=== PATIENT | male | born 1950 | race Caucasian/White ===

== ENCOUNTER 2019-05-14 05:50 | Inpatient (IN) ==
--- NOTE | 2019-04-28 14:58 | PAT Medication Instructions ---
Medication Instructions Date of Service April 28, 2019 Home Medications Cbd Oil 1 dose PO BID aspirin [Aspir-81] 81 mg PO QAM atorvastatin 80 mg PO QAM clopidogrel 75 mg PO QAM gabapentin 300 mg PO TID naproxen 1,000 mg PO QAM nitroglycerin [Nitrostat] 0.4 mg SUBLINGUAL UD PRN pantoprazole 40 mg PO QAM sertraline 50 mg PO QAM Continue as directed nitroglycerin [Nitrostat] 0.4 mg SUBLINGUAL UD PRN (if needed) ASK your surgeon for instructions naproxen 1,000 mg PO QAM ASK your prescriber and surgeon aspirin [Aspir-81] 81 mg PO QAM clopidogrel 75 mg PO QAM DO NOT take the morning of surgery Cbd Oil 1 dose PO BID Take morning of surgery With a small sip of water, OTHERWISE NOTHING TO EAT OR DRINK AFTER MIDNIGHT: atorvastatin 80 mg PO QAM gabapentin 300 mg PO TID pantoprazole 40 mg PO QAM sertraline 50 mg PO QAM Take evening before surgery Cbd Oil 1 dose PO BID gabapentin 300 mg PO TID Other Notes If you have any questions please call us at [phone] or [phone] or [phone] or [phone]
--- NOTE | 2019-04-29 13:05 | Anesthesiology Consultation ---
Date of Service April 29, 2019 Assessment & Plan (1) Encounter for pre-operative examination: - Awaiting review of preop testing (labs, CXR). - Cardiology office visit: 02/11/19: "Doing fairly well from a cardiac standpoint." Previous cardiac testing reviewed. Continued on same regimen. F/U 6 months recommended. 04/2017 ECHO in chart. Per cardiology office visit note, ECHO was done 06/2018- will attempt to obtain official report. - ASA/plavix instructions: per surgeon/cardiology History Surgery Operation Date: 05/14/19 07:45 Proposed Procedures p L3-S1 Decompression and Fusion, Spinal Cord Monitoring - Tamir Jenkins, Height/Weight Height: 6 ft Weight: 103.4 kg Allergies Allergy/AdvReac Type Severity Reaction Status Date / Time Penicillins Allergy Unknown Rash Verified 04/17/19 11:54 Medications Home Medications Medication Instructions Recorded Confirmed Last Taken Cbd Oil 1 dose PO BID 04/17/19 04/17/19 Unknown aspirin [Aspir-81] 81 mg PO QAM 04/17/19 04/17/19 Unknown atorvastatin 80 mg PO QAM 04/17/19 04/17/19 Unknown clopidogrel 75 mg PO QAM 04/17/19 04/17/19 Unknown gabapentin 300 mg PO TID 04/17/19 04/17/19 Unknown naproxen 1,000 mg PO QAM 04/17/19 04/17/19 Unknown nitroglycerin [Nitrostat] 0.4 mg SUBLINGUAL UD PRN 04/17/19 04/17/19 Unknown pantoprazole 40 mg PO QAM 04/17/19 04/17/19 Unknown sertraline 50 mg PO QAM 04/17/19 04/17/19 Unknown Past Medical History Medical History Acid reflux Anxiety CAD (coronary artery disease) PCI to LAD via HEADLEY graft (2015), CABG x2 (2008), patent grafts per 2018 cath History of cardiac arrhythmia per cardiology office visit note 01/2019, hx SVT likely a. flutter single episode detected on remote event monitor- cardio/EP monitoring History of ischemic cardiomyopathy improved EF (50%) per 06/2018 ECHO per cardiology office visit note History of kidney stones History of neck problems arthritis Hyperlipidemia Pinched nerve lumbar Exercise / Class Metabolic Activity III < 4 Walking/Shop/Light housework (one flight of stairs (no chest pain, rare SOB)) Past Surgical History Surgical History History of cardiac cath 2016 (stent), 2018 (no stents/patent grafts) History of cholecystectomy History of colonoscopy History of heart bypass surgery CABG x2 (2009) History of shoulder surgery RX3 Past Anesthesia History No Hx of Anesthesia Complications (except PONV (remote episodes)) and No Family Hx of Anesthesia Complications History of PONV History of PONV (remote hx (per patient, resolved when pre-treatment given)) and Hx of Motion Sickness Social History Smoking Status: Never smoker Do You Dip or Chew Tobacco: No Hx Alcohol Use: Yes Alcohol type: beer alcohol intake frequency: 3 or more drinks per day (2-3 BEERS/NIGHT) Hx Substance Use: No substance use type: other Substance Use Type Other:: CBD OIL Review of Systems Patient denies chest pain, shortness of breath, cough, wheezing, palpitations. Physical Exam Vital Signs VITALS BP 121/78 P 55 TEMP 97.6 SP02 93%RA RESP 18 PHYSICAL Mildly decreased cervical extension 2/2 cervicalgia/arthritis Full TMJ range of motion. TMD 3.5 finger breaths Mallampati Score 2 Dentition: intact Lungs: clear throughout to auscultation Cardiac: regular rate and rhythm, no murmurs noted Spine: normal Carotid arteries: negative bruit Extremities: no edema Testing Laboratory Results 04/29/19 13:25 04/29/19 13:25 PT 10.4 Seconds (9.0-12.0) 04/29/19 13:25 INR 1.0 (0.9-1.1) 04/29/19 13:25 APTT 23.0 Seconds (21.0-31.0) 04/29/19 13:25 Urine Color Yellow 04/29/19 Unknown Urine Appearance Clear (Clear) 04/29/19 Unknown Urine pH 6.5 (4.5-7.5) 04/29/19 Unknown Ur Specific [place] 1.010 (1.000-1.030) 04/29/19 Unknown Urine Protein Negative (Negative) 04/29/19 Unknown Urine Glucose (UA) Negative (Negative) 04/29/19 Unknown Urine Ketones Negative (Negative) 04/29/19 Unknown Urine Nitrite Negative (Negative) 04/29/19 Unknown Ur Leukocyte Esterase Negative (Negative) 04/29/19 Unknown Blood Type A Positive 04/29/19 13:25 Antibody Screen NEGATIVE 04/29/19 13:25 Electrocardiogram Date: 02/11/19 SR at 87bpm. Possible septal infarct. + PVC's. Done at cardiology office visit 02/11/19- reviewed at visit, continued on same regimen with recommendation to f/u 6 months Chest X-Ray Date: 04/29/19 Median sternotomy wires and mediastinal surgical clips. Coronary artery calcification or stents may be present. Cardiac silhouette top normal in size. Lungs and pleural spaces clear. Degenerative changes of the thoracic spine. Cholecystectomy clips noted. IMPRESSION: No acute cardiopulmonary disease. Stress Test Date: 05/10/17 Type: nuclear Large moderate reversible anterior and septal defect suggestive of ischemia. No evidence of myocardial infarction. LVEF 55%. Subsequent cardiac cath 05/23/2017. Cardiac Catheterization Date: 05/23/17 Left main 99% occluded. LAD 100% occluded proximally. CX 100% occluded ostially. RCA proximal 90% calcified stenosis. Then 99% occluded in the transition from proximal to mid segment. After the second RV marginal the RCA is 100% occluded. SVG to OM graft widely patent. Left to right collateralization to the distal RCA distribution. HEADLEY to LAD remains intact. [place] vessel has stent after anastomosis with is patent. Several septal branches and small collaterals to the lateral wall. Conclusion: Severe [place] vessel coronary artery disease. 2 out of 2 grafts are widely patent. No target for PCI. LVEF 45%. Mild to moderate MR. Medical therapy recommended.
--- NOTE | 2019-04-29 13:52 | XRay Report ---
XR chest Pre-admission PA/Lat CLINICAL HISTORY: 68 years-old Male presenting with preoperative assessment, asymptomatic. TECHNIQUE: PA and lateral views of the chest were obtained. COMPARISON: None. FINDINGS: Median sternotomy wires and mediastinal surgical clips. Coronary artery calcification or stents may b e present. Cardiac silhouette top normal in size. Lungs and pleural spaces clear. Degenerative change s of the thoracic spine. Cholecystectomy clips noted. IMPRESSION: 1. No acute cardiopulmonary disease. ACT 112: Negative or not required by law. Electronically signed by: Juvenal Morse M.D. 04/29/2019 1:50 PM
[2019-04-29 14:17] LABS: Basophils # (auto) 0.03 K/uL (0-0.2); Basophils % (auto) 0.4 %; Eosinophils # (auto) 0.28 K/uL (0-0.5); Hematocrit (blood only) 45.6 % (42-52); Hemoglobin 14.9 g/dL (14.0-18.0); Immature Granulocytes # (auto) 0.02 K/uL (0.00-0.02); Immature Granulocytes % (auto) 0.3 %; Lymphocytes # (auto) 1.73 K/uL (1.2-3.4); Lymphocytes % (auto) 24.5 %; Mean Corpuscular Hemoglobin 29.9 pg (25-34); Mean Corpuscular Hgb Conc 32.7 g/dL (32-36); Mean Corpuscular Volume 91.4 fL (80-100); Mean Platelet Volume 10.5 fL (7.4-10.4); Monocytes # (auto) 0.84 K/uL (0.11-0.59); Monocytes % (auto) 11.9 %; Neutrophils # (auto) 4.17 K/uL (1.4-6.5); Neutrophils % (auto) 58.9 %; Platelet Count 213 K/uL (130-400); RDW Coefficient of Variation 13.3 % (11.5-14.5); Red Blood Count 4.99 M/uL (4.7-6.1); White Blood Count 7.07 K/uL (4.8-10.8)
[2019-04-29 14:20] LABS: BUN Creatinine Ratio 19.7 (10-20); Calcium 9.2 mg/dl (8.5-10.1); Creatinine Clr Calc Pharmacy 100.4 ml/min; Est GFR (African American) 102.8; Est GFR (Non-African American) 88.7; Potassium 4.3 mmol/L (3.5-5.1)
[2019-04-29 14:21] LABS: Partial Thromboplastin Ratio 0.8; Prothrombin Time 10.4 Seconds (9.0-12.0)
[2019-04-29 14:57] LABS: Appearance Urine Clear (Clear); Bilirubin Urine Negative (Negative); Blood Urine Negative (Negative); Color Urine Yellow; Glucose Urine UA Negative (Negative); Ketones Urine Negative (Negative); Leukocyte Esterase Urine Negative (Negative); Nitrite Urine Negative (Negative); Protein Urine Negative (Negative); Urobilinogen Urine Negative (Negative); pH Urine 6.5 (4.5-7.5)
[2019-05-14] MEDS ORDERED: CLINDAMYCIN 600 MG/54 ML BAG IV SCH (06:00)
[2019-05-14] MEDS ORDERED: GABAPENTIN 300 MG CAP PO SCH (06:00)
[2019-05-14] MEDS ORDERED: LR 15ML/HR IV SCH (06:00)
[2019-05-14] MEDS ORDERED: fentaNYL citrate 100 MCG/2 ML VIAL ONE ×2 (06:38→09:12)
[2019-05-14] MEDS ORDERED: ONDANSETRON INJ 2 MG/ML 2 ML VIAL ONE ×2 (06:38→08:37)
[2019-05-14] MEDS ORDERED: DEXAMETHASONE SOD INJ 4 MG/ML VIAL ONE (06:38)
[2019-05-14] MEDS ORDERED: MIDAZOLAM HCL 1 MG/ML 2ML VIAL ONE (06:38)
[2019-05-14] MEDS ORDERED: LIDOCAINE HCL 2% 2 ML VIAL/AMP(20MG/ML) INFIL ONE (06:38)
[2019-05-14] MEDS ORDERED: NEOSTIGMINE METHYLSULFATE 1 MG/ML 10ML VIAL ONE (06:38)
[2019-05-14] MEDS ORDERED: ROCURONIUM BROMIDE 10 MG/ML 5 ML VIAL ONE ×3 (06:38→09:11)
[2019-05-14] MEDS ORDERED: GLYCOPYRROLATE 0.2 MG/ML VIAL ONE (06:38)
[2019-05-14] MEDS ORDERED: PROPOFOL IV EMULSION 10 MG/ML 20 ML VIAL IV ONE ×3 (06:38→09:10)
[2019-05-14] MEDS ORDERED: ATROPINE SULFATE 0.1 MG/ML 10ML SYR IV PRN (06:58)
[2019-05-14] MEDS ORDERED: PROMETHAZINE HCL 12.5 MG in SODIUM CHLORIDE 0.9% 50 ML IV PRN ×2 (06:58→12:32)
[2019-05-14] MEDS ORDERED: METOCLOPRAMIDE HCL INJ 5 MG/ML 2 ML VIAL IV PRN ×2 (06:58→12:32)
[2019-05-14] MEDS ORDERED: ePHEDrine sulfate 50 MG/ML AMP IV PRN (06:58)
[2019-05-14] MEDS ORDERED: ONDANSETRON INJ 2 MG/ML 2 ML VIAL IV PRN ×2 (06:58→12:32)
[2019-05-14] MEDS ORDERED: BUPIVACAINE/EPINEPHRINE 0.5% MPF 1:200,000 10 ML VIAL ONE (07:00)
[2019-05-14] MEDS ORDERED: BACITRACIN INJ 50,000 UNIT VIAL ONE (07:00)
--- NOTE | 2019-05-14 07:34 | History & Physical Bridge Note ---
Date of Service May 14, 2019 History & Physical Bridge Note I have examined the patient, reviewed the History & Physical and in the interval since the performance of the History & Physical I have noted the following changes of clinical significance: no changes noted
--- NOTE | 2019-05-14 07:35 | History & Physical Report ---
Date of Service May 14, 2019 Assessment & Plan (1) Neurogenic claudication due to lumbar spinal stenosis: L3-S1 decompression fusion Present on Admission?: Yes History of Present Illness Chief Complaint: Back and leg pain Primary Care Provider: Kiet Mckeon This is a 68-year-old male who presents with chronic persistent back and leg pain after failing extensive course of nonoperative care is here for surgical intervention. Allergies Allergy/AdvReac Type Severity Reaction Status Date / Time Penicillins Allergy Intermediate Rash Verified 05/14/19 06:05 Home Medications Home Medications Medication Instructions Recorded Confirmed Type Cbd Oil 1 dose PO BID 04/17/19 05/14/19 History aspirin [Aspir-81] 81 mg PO QAM 04/17/19 05/14/19 History atorvastatin 80 mg PO QAM 04/17/19 05/14/19 History clopidogrel 75 mg PO QAM 04/17/19 05/14/19 History gabapentin 300 mg PO TID 04/17/19 05/14/19 History naproxen 1,000 mg PO QAM 04/17/19 05/14/19 History nitroglycerin [Nitrostat] 0.4 mg SUBLINGUAL UD PRN 04/17/19 05/14/19 History pantoprazole 40 mg PO QAM 04/17/19 05/14/19 History sertraline 50 mg PO QAM 04/17/19 05/14/19 History Past Med/Surg History Medical History Acid reflux Anxiety CAD (coronary artery disease) PCI to LAD via HEADLEY graft (2015), CABG x2 (2008), patent grafts per 2018 cath History of cardiac arrhythmia per cardiology office visit note 01/2019, hx SVT likely a. flutter single episode detected on remote event monitor- cardio/EP monitoring History of ischemic cardiomyopathy improved EF (50%) per 06/2018 ECHO per cardiology office visit note History of kidney stones History of neck problems arthritis Hyperlipidemia Pinched nerve lumbar Surgical History History of cardiac cath 2016 (stent), 2018 (no stents/patent grafts) History of cholecystectomy History of colonoscopy History of heart bypass surgery CABG x2 (2008) History of shoulder surgery RX3 Social History Preferred Language: Sinhala Communication Ability: Effective Communication Ability Comment: HARD OF HEARING ON PHONE, PT REQUEST JASON TO DO PHONE INTERVIEW Battery Installer Required: No Beliefs That Will Affect Care: None Current Living Situation: Spouse Other Information That Helps Us Care for You: No Feels Safe at Home: Yes Smoking Status: Never smoker Do You Dip or Chew Tobacco: No ; Hx Alcohol Use: Yes Alcohol type: beer Hx Substance Use: No Physical Exam Physical Exam: Patient is alert and oriented neurologically intact. Results & Data Vital Signs (Past 12 Hours) Vital Signs Temp Pulse Resp BP Pulse Ox 05/14/19 06:15 36.8 C 60 18 156/94 H 96
[2019-05-14] MEDS ORDERED: PHENYLEPHRINE 100MCG/ML 5ML SYR ONE (08:16)
[2019-05-14] MEDS ORDERED: ePHEDrine sulfate 50 MG/ML SYR ONE (08:16)
[2019-05-14] MEDS ORDERED: PROMETHAZINE HCL INJ 25 MG/ML 1 ML VIAL ONE (08:38)
[2019-05-14] MEDS ORDERED: FLOSEAL HEMOSTATIC MATRIX 10ML TOP ONE (09:01)
--- NOTE | 2019-05-14 10:25 | Operative Report ---
Post Operative Report Pre & Post Diagnosis Operation Date: 05/14/19 07:45 Pre-Op Diagnosis: LUMBAR SPINAL STENOSIS w NEUROGENIC CLAUDICATION Spondylolisthesis L5-S1 Post-Op Diagnosis: Same I identified the patient and participated in the time-out.: Yes Procedure Operation Date: 05/14/19 07:45 Actual Procedures #1 lumbar decompression bilateral medial facetectomies foraminotomies L3-4, L4- 5, L5-S1. #2 posterior spinal fusion L3-4, L4-5, L5-S1. #3 placement posterior segmental instrumentation from L3-S1. #4 interbody fusion L4-5 and L5-S1. #5 placed a peek cage 12 x 26 mm L4-5 and 11 x 26 mm at L5-S1. #6 placement locally harvested morselized autograft in the posterior lateral gutters. #7 placement infuse collagen sponge, master graft in the posterior gutters and ostial amp interbody space. Surgeon Tamir Jenkins, DO Accounts Payable Bookkeeper Tosin Winter Estimated Blood Loss 300 Findings See Below The patient is 6 feet tall weighing over 103 kg with a BMI in excess of 31. The patient's body habitus did create marked increased technical difficulty adding at least 25% increased to the operative time and requiring her deepest retractors and longest instruments in order to perform his procedure. Specimens None Indications This is a 68-year-old male who presents above-mentioned diagnosis after failing extensive course of nonoperative care elected undergo the above-mentioned procedure. Description of Procedure Patient was met with case discussed all questions were addressed and informed consent obtained. Patient was then taken to the operative suite underwent intubation placed in a prone position the Edwardo table on top Yousuf frame. All bony prominences well-padded inspected to ensure no external pressure placed upon. This point lumbar spine was prepped and draped in a sterile fashion. Sharp dissection with the assistance of Bovie cautery performed down to and exposing the lamina transverse processes bilaterally. From caudal cephalad fashion complete laminectomy of L5 L4 and L3 is performed including bilateral medial facetectomies foraminotomies addressing severe spinal stenosis. Pedicle screws were then placed in L3-L4 and L5 and S1 bilaterally with assistance of fluoroscopy the purposes radha placed. By way of a transforaminal approach on the right a complete discectomy of L5-S1 is performed endplates curetted to subcortical bleeding bone and a 11 x 26 mm peek cage filled with osteo-bone graft tapped in position. Then proceeded L4-[address] of a transforaminal approach on the right complete discectomy was performed endplates curetted to subcortical bleeding bone and a 12 x 26 mm peek cage filled with osteo-bone graft tapped in position. The rods were then locked in final position bilaterally. The transverse processes of L3-L4-L5 and sacral ala burred to subcortical bleeding bone. Infuse collagen sponge master graft local autograft was placed in the posterior lateral gutters. 15 round SAM drain inserted. The incision was then closed with 1 Vicryl in the fascia 2-0 Vicryl subcutaneously and 4 Monocryl for final skin closure. Steri-Strip sterile dressings placed. Patient will continue to PACU in stable condition. Please note spinal cord monitoring was utilized that the procedure no changes noted. Lastly Tosin Winter was present at the entire procedure involved the patient positioning complex portions of the surgery and final skin closure. I attest to the content of the Intraoperative Record and any orders documented therein. Any exceptions are noted below.
[2019-05-14] MEDS: fentaNYL citrate 100 MCG/2 ML VIAL IV PRN ×2 (10:51→10:57)
[2019-05-14] MEDS: MoRPHine SULFATE 10 MG/ML CARP/VIAL IV PRN ×6 (11:03→11:28)
[2019-05-14] MEDS: HYDROmorphone INJ 2 MG/ML SYR/VIAL IV PRN ×5 (11:34→11:50)
--- NOTE | 2019-05-14 11:59 | Fluoroscopy Report ---
FL lumbar spine 2-3V CLINICAL HISTORY: 68 years-old Male presenting with L3-S1 DECOMPRESSION/FUSION. TECHNIQUE: 2 fluoroscopic image(s) recorded as part of an intraoperative procedure. COMPARISON: None. FINDINGS/IMPRESSION: Postsurgical changes of posterior bilateral transpedicular screw and radha fixation of L3-S1 with inter body spacers at L4-5 and L5-S1 and laminectomy defects at L4 and L5. Normal anatomic alignment. Please see surgical report for further details. Fluoroscopy dosage (mGy): 20.45. Fluoroscopy time: 22.0 seconds. Number or time of high level fluoroscopy (HLF), digital spot, or digital subtraction images: 0. ACT 112: Negative or not required by law. Electronically signed by: Juvenal Morse M.D. 05/14/2019 11:58 AM
[2019-05-14] MEDS ORDERED: SOD PHOSPHATE/SOD BIPHOSPHATE ENEMA 132 ML BTL PR PRN (12:32)
[2019-05-14] MEDS ORDERED: DO NOT ADMINISTER FLU VACCINE PRN (12:32)
[2019-05-14] MEDS ORDERED: HYDROmorphone INJ 0.5 MG/0.5 ML SYR IV PRN (12:32)
[2019-05-14] MEDS ORDERED: LORazepam 0.5 MG/1 ML VIAL IV PRN (12:32)
[2019-05-14] MEDS ORDERED: FAMOTIDINE 20 MG TAB PO PRN (12:32)
[2019-05-14] MEDS ORDERED: NALOXONE HCL 0.4 MG/1 ML VIAL/CARP IV PRN (12:32)
[2019-05-14] MEDS ORDERED: LORazepam 0.5 MG TAB PO PRN (12:32)
[2019-05-14] MEDS ORDERED: DO NOT ADMINISTER PNEUMOCOCCAL VACCINE PRN (12:32)
[2019-05-14] MEDS ORDERED: MAGNESIUM HYDROXIDE SUSP 30 ML UDC PO PRN (12:32)
[2019-05-14] MEDS ORDERED: ACETAMINOPHEN 500 MG TAB PO PRN (12:32)
[2019-05-14] MEDS ORDERED: bisacodyL 10 MG SUPP PR PRN (12:32)
[2019-05-14] MEDS ORDERED: TRAMADOL HCL 50 MG TABLET PO PRN (12:32)
[2019-05-14] MEDS ORDERED: ACETAMINOPHEN 1,000 MG/100 ML VIAL IV PRN (12:32)
[2019-05-14] MEDS ORDERED: NITROGLYCERIN SL 0.4 MG/TAB TAB SL PRN (12:32)
[2019-05-14] MEDS ORDERED: ALUMINUM/MAGNESIUM SUSP 30 ML UDC PO PRN (12:32)
--- NOTE | 2019-05-14 13:17 | Consultation ---
Date of Consultation May 14, 2019 Assessment & Plan (1) Neurogenic claudication due to lumbar spinal stenosis: Status post lumbar decompression and fusion L3-S1 by Dr. Jenkins, POD #0 EBL 300 mL; SAM drain 180 mL Patient tolerated procedure well Pain/wound management per Ortho Activity and therapy as directed by Ortho DVT prophylaxis per Ortho Encourage incentive spirometry and wean O2 as able Follow H&H -preop 2/4 14.9 & 45.6 (2) CAD (coronary artery disease): Patient denies chest pain or shortness of breath History of CABG x2 in 2008; PCI to [place] LAD 2016 On ASA, Plavix, statin as outpatient Not on RIGO inhibitor or beta-ai (3) Hyperlipidemia: Continue atorvastatin (4) Anxiety: Mood stable, continue Zoloft (5) Acid reflux: Asymptomatic, continue PPI (6) DVT prophylaxis: SCD/teds Disposition: Per primary Follow-up: PCP Dr. Mckeon upon discharge Patient was seen and examined in collaboration with Dr. Flethcer, please see addendum Thank you for this consultation. We will follow the patient with you during their hospital stay. You can reach a member of the [facility] 16/10 via pager @ [phone]. Supervising Physician Co-Signing Physician Notes I have seen and examined the patient and have discussed the case with the provider above. I agree with the assessment and plan as stated with the following exceptions. 68 yo M with recent lumbar surgery. Because of his height and weight, OR time was extended by 25% with 300mL est blood loss. Doing well post-operatively reporting min pain that is controlled. He does not appear overtly dehydrated and is comfortable. Denied any chest pain, palpitations, dyspnea or other issue. Physical exam reveals a regular tachycardia with no murmurs, gallops or rubs. He has no peripheral edema and has a normal respiratory effort. Lungs were clear to auscultation bilaterally. SAM drain was in place. Wound was not examined due to patient's supine positioning and post- operative discomfort. Mentating clearly. HR noted to be around 110-115 on the monitor. Denied anxiety. Was noted to have received ephedrine and dexamethasone intraoperatively earlier in the day. By the end of the day, tac hycardia persisted but did not rise. PE considered but thought to be more likely the post operative setting related to pain, anxiety and anesthesia/medications administered. EKG ordered and revealed sinus rhythm. Cont to monitor in hospital during acute post-operative recovery. DO Chance History of Present Illness Requesting Physician: Dr. Jenkins Reason for Consultation: Postop medical management Attending Physician: Tamir Jenkins DO History of Present Illness This is a 68-year-old male who has significant PMH of CAD with history of CABG x2, history of ischemic cardiomyopathy, hyperlipidemia, GERD, anxiety who presents to [facility] for elective lumbar procedure. Patient has experienced chronic low back pain with radiculopathy secondary to lumbar spinal stenosis with neurogenic claudication. He failed outpatient conservative treatment and underwent elective L3-S1 decompression fusion today by Dr. Jenkins. He tolerated the procedure well and is currently just, "tired and dry mouth." and [id number] are at bedside. He denies any postoperative nausea, vomiting, dizziness, lightheadedness, syncope, chest pain, shortness breath, palpitations, abdominal pain, numbness and tingling to lower extremities or lower extremity pain. He is currently experiencing lumbar incisional discomfort approximately 5 out of 10. Of significance he does have a past medical history of [place] vessel CAD. He underwent two-vessel bypass 11/21/2008 along with PCI to LAD via the HEADLEY graft on 07/07/2015. He is stable from a cardiac standpoint and does not experience any exertional or at rest angina or shortness of breath. He does have a prior history of ischemic cardiomyopathy but most recent echo June 2018 revealed EF 50%, LA moderately dilated, mild MR and AR. He is currently managed with dual antiplatelet therapy per cardiology. He also has significant history of hyperlipidemia controlled on atorvastatin and anxiety controlled with sertraline. He offers no other acute concerns or complaints at this time. Allergies Allergy/AdvReac Type Severity Reaction Status Date / Time Penicillins Allergy Intermediate Rash Verified 05/14/19 06:05 tramadol Allergy dizziness Verified 05/14/19 13:12 and itching Home Medications Home Medications Medication Instructions Recorded Confirmed Type Cbd Oil 1 dose PO BID 04/17/19 05/14/19 History aspirin [Aspir-81] 81 mg PO QAM 04/17/19 05/14/19 History atorvastatin 80 mg PO QAM 04/17/19 05/14/19 History clopidogrel 75 mg PO QAM 04/17/19 05/14/19 History gabapentin 300 mg PO TID 04/17/19 05/14/19 History naproxen 1,000 mg PO QAM 04/17/19 05/14/19 History nitroglycerin [Nitrostat] 0.4 mg SUBLINGUAL UD PRN 04/17/19 05/14/19 History pantoprazole 40 mg PO QAM 04/17/19 05/14/19 History sertraline 50 mg PO QAM 04/17/19 05/14/19 History Patient History Medical History Acid reflux Anxiety CAD (coronary artery disease) PCI to LAD via HEADLEY graft (2015), CABG x2 (2008), patent grafts per 2018 cath History of cardiac arrhythmia per cardiology office visit note 01/2019, hx SVT likely a. flutter single episode detected on remote event monitor- cardio/EP monitoring History of ischemic cardiomyopathy improved EF (50%) per 06/2018 ECHO per cardiology office visit note History of kidney stones History of neck problems arthritis Hyperlipidemia Pinched nerve lumbar Surgical History History of cardiac cath 2016 (stent), 2018 (no stents/patent grafts) History of cholecystectomy History of colonoscopy History of heart bypass surgery CABG x2 (2008) History of shoulder surgery RX3 Family History (Updated 05/14/19 @ 13:06 by Francheska Wood PA-C) Other Coronary heart disease Social History (Updated 05/14/19 @ 13:05 by Francheska Wood PA-C) Preferred Language: Mohawk Communication Ability: Effective Communication Ability Comment: HARD OF HEARING ON PHONE, PT REQUEST JASON TO DO PHONE INTERVIEW Digital Sales Director Required: No Beliefs That Will Affect Care: None marital status: Current Living Situation: Spouse Other Information That Helps Us Care for You: No Feels Safe at Home: Yes Smoking Status: Never smoker Do You Dip or Chew Tobacco: No ; Hx Alcohol Use: Yes Alcohol type: beer Alcohol Intake Frequency: Daily Alcohol Intake Frequency Comment: To light beers daily Hx Substance Use: No Review of Systems Review of Systems: All systems reviewed & are unremarkable except as noted in HPI & below Physical Exam Physical Exam: Constitutional: WD/WN, male, vitals as above, NAD, lying in bed, pleasant, conversing easily Head: Normocephalic, Atraumatic Eyes: PERRL, conjunctivae normal, anicteric sclerae ENMT: external ear and nose normal, oropharynx normal with dry membranes Neck: trachea midline, no thyromegaly normal visual inspection Respiratory: normal respiratory effort, lungs clear to auscultation, no wheeze, rales, rhonchi. Normal insp/exp effort, no accessory muscle use Cardiovascular: Tachycardic rate, regular rhythm, no murmur, bilateral SCDs and teds in place, no edema Vessels: no JVD or carotid bruit Chest: normal inspection of chest Abdomen: normal bowel sounds, soft, nontender, no hepatosplenomegaly Musculoskeletal: no cyanosis or clubbing, extremities active range of motion x4 Skin: no rashes, warm and dry normal turgor Neurologic: PERRL, EOMI, accommodation nl, no face palsy, no dysarthria CN's II-XI intact bilaterally and moves all extremities Psychiatric: A+Ox3, euthymic affect Lymphatic: no cervical or axillary lymphadenopathy : + Hernandez cath in place with draining clear yellow urine Results & Data ([facility]) Vital Signs (Past 12 Hours) Vital Signs Temp Pulse Pulse Resp BP Pulse Ox 05/14/19 12:52 110 H 16 130/79 90 05/14/19 12:15 36.5 C 98 H 14 128/83 94 05/14/19 12:00 36.8 C 99 H 12 115/80 92 05/14/19 11:50 36.8 C 98 H 12 112/83 96 05/14/19 11:40 36.8 C 90 13 126/84 96 05/14/19 11:30 94 H 14 123/88 98 05/14/19 11:20 86 14 126/85 98 05/14/19 11:10 89 12 133/84 97 05/14/19 11:00 84 13 133/78 97 05/14/19 10:50 85 15 113/75 97 05/14/19 10:44 36.0 C L 92 H 12 129/78 96 05/14/19 06:15 36.8 C 60 18 156/94 H 96 Laboratory Results 05/14/19 Range/Units 06:11 Blood Type A Positive Antibody Screen NEGATIVE Crossmatch See Detail Preop lab work 04/29/2019 revealed: H&H 14.9 and 45.6, WBC 7k, platelet 213, BUN 18, creatinine 0.9, sodium 136, K4.3 Urinalysis WNL Diagnostic Findings Preoperative chest x-ray: No acute cardiopulmonary abnormality Last echocardiogram 07/01/2018 revealed preserved ejection fraction 50%, moderately dilated left atrium, mild mitral regurgitation, mild aortic valve regurgitation Last cardiac cath 2018 revealed patent 2 grafts along with a patent [place] vessel LAD stent. Medications Administered Gabapentin (Neurontin) 300 mg PO PREOP KINGS Stop: 05/14/19 18:00 Last Admin: 05/14/19 06:29 Dose: Not Given Documented by: [id number] Lactated Ringer's (Lr) 1,000 mls @ 15 mls/hr IV .Q24H KINGS Stop: 05/15/19 05:59 Last Infusion: 05/14/19 07:49 Dose: 0 mls/hr Documented by: [id number] Admin: 05/14/19 06:25 Dose: 15 mls/hr Documented by: [id number] Clindamycin Phosphate (Cleocin) 600 mg in 54 mls @ 100 mls/hr IV PREOP KINGS Stop: 05/15/19 05:59 Last Infusion: 05/14/19 12:35 Dose: 0 mls/hr Documented by: [id number] Admin: 05/14/19 08:09 Dose: 100 mls/hr Documented by: [id number] Discontinued Medications Bacitracin (Bacitracin) Confirm Administered Dose 50,000 units .ROUTE .STK-MED ONE Stop: 05/14/19 07:01 Last Admin: 05/14/19 10:25 Dose: 50,000 units Documented by: [id number] Bupivacaine HCl/Epinephrine Bitart (Sensorcaine/Epinephrine 0.5% Mpf 1:200,000) Confirm Administered Dose 30 ml .ROUTE .STK-MED ONE Stop: 05/14/19 07:01 Last Admin: 05/14/19 09:00 Dose: 30 ml Documented by: [id number] Fentanyl Citrate (Fentanyl Citrate) 50 mcg IV Q5M PRN PRN Reason: PACU Use Only-Pain Stop: 05/14/19 11:58 Last Admin: 05/14/19 10:57 Dose: 50 mcg Documented by: [id number] Admin: 05/14/19 10:51 Dose: 50 mcg Documented by: [id number] Hydromorphone HCl (Dilaudid) 0.5 mg IV Q5M PRN PRN Reason: PACU Use Only-Pain Stop: 05/14/19 11:58 Last Admin: 05/14/19 11:50 Dose: 0.5 mg Documented by: [id number] Admin: 05/14/19 11:45 Dose: 0.5 mg Documented by: [id number] Admin: 05/14/19 11:40 Dose: 0.5 mg Documented by: [id number] Admin: 05/14/19 11:39 Dose: 0.5 mg Documented by: [id number] Admin: 05/14/19 11:34 Dose: 0.5 mg Documented by: [id number] Miscellaneous (Floseal Hemostatic Matrix 10ml) 10 ml TOP ONCE ONE Stop: 05/14/19 09:02 Last Admin: 05/14/19 10:25 Dose: 26 ml Documented by: [id number] Morphine Sulfate (Morphine Sulfate) 2 mg IV Q5M PRN PRN Reason: PACU Use Only-Pain Stop: 05/14/19 11:58 Last Admin: 05/14/19 11:28 Dose: 2 mg Documented by: [id number] Admin: 05/14/19 11:23 Dose: 2 mg Documented by: [id number] Admin: 05/14/19 11:18 Dose: 2 mg Documented by: [id number] Admin: 05/14/19 11:13 Dose: 2 mg Documented by: [id number] Admin: 05/14/19 11:08 Dose: 2 mg Documented by: [id number] Admin: 05/14/19 11:03 Dose: 2 mg Documented by: [id number] ECG Rate (beats per minute): 86 Rhythm: normal sinus Findings: + 1st degree AV block and + PVC
[2019-05-14] MEDS: SODIUM CHLORIDE 0.9% 1000ML 1,000 ML IV SCH ×2 (13:19→19:42)
[2019-05-14] MEDS: KETOROLAC TROMETHAMINE 15 MG/ML VIAL IV SCH ×2 (13:20→20:26)
[2019-05-14] MEDS: HYDROmorphone INJ 1 MG/ML SYRINGE IV PRN ×2 (13:21→20:40)
--- NOTE | 2019-05-14 13:29 | Anesthesiology Progress Note ---
Date of Service May 14, 2019 Anesthesia Post Procedure Vital Signs Vital Signs: Temp Pulse Pulse Resp BP Pulse Ox 05/14/19 13:15 36.5 C 105 H 18 136/84 95 05/14/19 13:05 109 H 16 123/85 94 05/14/19 12:52 110 H 16 130/79 90 05/14/19 12:15 36.5 C 98 H 14 128/83 94 05/14/19 12:00 36.8 C 99 H 12 115/80 92 05/14/19 11:50 36.8 C 98 H 12 112/83 96 05/14/19 11:40 36.8 C 90 13 126/84 96 05/14/19 11:30 94 H 14 123/88 98 05/14/19 11:20 86 14 126/85 98 05/14/19 11:10 89 12 133/84 97 05/14/19 11:00 84 13 133/78 97 05/14/19 10:50 85 15 113/75 97 05/14/19 10:44 36.0 C L 92 H 12 129/78 96 05/14/19 06:15 36.8 C 60 18 156/94 H 96 Pain Intensity Lower Back: Pain Intensity: 8 Transfer of Care Handoff Completed per policy Notes Mental Status: alert / awake / arousable and participated in evaluation Patient Amnestic to Procedure: Yes Nausea / Vomiting: adequately controlled Pain: adequately controlled Airway Patency, RR, SpO2: stable & adequate BP & HR: stable & adequate Hydration State: stable & adequate Anesthetic Complications: no major complications apparent
[2019-05-14] MEDS: GABAPENTIN 300 MG CAP PO SCH ×2 (14:14→20:26)
[2019-05-14] MEDS: OXYCODONE HCL IR 5 MG TAB (IMMEDIATE RELEASE) PO PRN ×2 (14:16→18:19)
[2019-05-14] MEDS: CLINDAMYCIN 600 MG in DEXTROSE 5% 50 ML IV SCH (16:41)
[2019-05-14] MEDS: DOCUSATE SODIUM/SENNA 50/8.6MG TAB PO SCH (20:26)
[2019-05-14] MEDS: ONDANSETRON 4 MG OD TAB PO PRN (22:36)
[2019-05-15] MEDS: CLINDAMYCIN 600 MG in DEXTROSE 5% 50 ML IV SCH (00:05)
[2019-05-15] MEDS: OXYCODONE HCL IR 5 MG TAB (IMMEDIATE RELEASE) PO PRN ×5 (00:19→23:53)
[2019-05-15] MEDS: KETOROLAC TROMETHAMINE 15 MG/ML VIAL IV SCH ×2 (02:13→08:15)
[2019-05-15] MEDS: SODIUM CHLORIDE 0.9% 1000ML 1,000 ML IV SCH (02:55)
[2019-05-15] MEDS: POLYETHYLENE (MIRALAX) 17 GM PACK PO SCH ×4 (05:37→23:38)
[2019-05-15] MEDS: HYDROmorphone INJ 1 MG/ML SYRINGE IV PRN ×4 (05:43→21:28)
[2019-05-15 08:06] LABS: Basophils # (auto) 0.01 K/uL (0-0.2); Basophils % (auto) 0.1 %; Eosinophils # (auto) 0.09 K/uL (0-0.5); Eosinophils % (auto) 1.2 %; Hematocrit (blood only) 35.6 % (42-52); Hemoglobin 11.5 g/dL (14.0-18.0); Immature Granulocytes # (auto) 0.02 K/uL (0.00-0.02); Immature Granulocytes % (auto) 0.3 %; Lymphocytes # (auto) 1.34 K/uL (1.2-3.4); Lymphocytes % (auto) 17.3 %; Mean Corpuscular Hemoglobin 30.5 pg (25-34); Mean Corpuscular Hgb Conc 32.3 g/dL (32-36); Mean Corpuscular Volume 94.4 fL (80-100); Mean Platelet Volume 10.5 fL (7.4-10.4); Monocytes # (auto) 0.88 K/uL (0.11-0.59); Monocytes % (auto) 11.3 %; Neutrophils # (auto) 5.42 K/uL (1.4-6.5); Neutrophils % (auto) 69.8 %; Platelet Count 141 K/uL (130-400); RDW Coefficient of Variation 13.7 % (11.5-14.5); RDW Standard Deviation 47.5 fL (36.4-46.3); Red Blood Count 3.77 M/uL (4.7-6.1); White Blood Count 7.76 K/uL (4.8-10.8)
[2019-05-15] MEDS: GABAPENTIN 300 MG CAP PO SCH ×3 (08:13→20:21)
[2019-05-15] MEDS: PANTOprazole 40 MG TAB PO SCH (08:13)
--- NOTE | 2019-05-15 08:13 | Orthopedic Progress Note ---
Date of Service May 15, 2019 Assessment & Plan (1) Neurogenic claudication due to lumbar spinal stenosis: This time initiate physical therapy monitor his SAM output hopefully discharge home in the next few days. Present on Admission?: Yes Admission and Anticipated Discharge Date Admission Date: May 14, 2019 Subjective Back pain controlled leg symptoms improved. Physical Exam Physical Exam: Patient is good strength testing. Results & Data ([facility]) Vital Signs (Past 12 Hours) Vital Signs Temp Pulse Resp BP Pulse Ox 05/15/19 07:58 36.4 C L 87 16 129/89 98 05/15/19 03:45 36.4 C L 98 H 16 132/77 98 05/14/19 23:03 36.6 C 98 H 16 143/81 H 96
[2019-05-15] MEDS: SERTRALINE HCL 50 MG TABLET PO SCH (08:14)
[2019-05-15] MEDS: ATORVASTATIN 40 MG TAB PO SCH (08:14)
[2019-05-15] MEDS: ASPIRIN 81 MG ECTAB PO SCH (08:14)
[2019-05-15 08:37] LABS: BUN Creatinine Ratio 15.5 (10-20); Calcium 8.2 mg/dl (8.5-10.1); Creatinine Clr Calc Pharmacy 107.8 ml/min; Est GFR (African American) 105.7; Est GFR (Non-African American) 91.2; Potassium 3.8 mmol/L (3.5-5.1)
--- NOTE | 2019-05-15 10:03 | Anesthesiology Progress Note ---
Date of Service May 15, 2019 Anesthesia Post Procedure Vital Signs Vital Signs: Temp Pulse Pulse Pulse Resp BP Pulse Ox 05/15/19 07:58 36.4 C L 87 16 129/89 98 05/15/19 03:45 36.4 C L 98 H 16 132/77 98 05/14/19 23:03 36.6 C 98 H 16 143/81 H 96 05/14/19 20:00 36.7 C 115 H 20 143/83 H 95 05/14/19 15:15 36.4 C L 113 H 18 132/92 95 05/14/19 14:15 36.9 C 110 H 18 150/91 H 94 05/14/19 13:45 105 H 16 135/80 05/14/19 13:15 36.5 C 105 H 18 136/84 95 05/14/19 13:05 109 H 16 123/85 94 05/14/19 12:52 110 H 16 130/79 90 05/14/19 12:15 36.5 C 98 H 14 128/83 94 05/14/19 12:00 36.8 C 99 H 12 115/80 92 05/14/19 11:50 36.8 C 98 H 12 112/83 96 05/14/19 11:40 36.8 C 90 13 126/84 96 05/14/19 11:30 94 H 14 123/88 98 05/14/19 11:20 86 14 126/85 98 05/14/19 11:10 89 12 133/84 97 05/14/19 11:00 84 13 133/78 97 05/14/19 10:50 85 15 113/75 97 05/14/19 10:44 36.0 C L 92 H 12 129/78 96 Pain Intensity Lower Back: Pain Intensity: 6 Notes Mental Status: alert / awake / arousable and participated in evaluation Patient Amnestic to Procedure: Yes Nausea / Vomiting: adequately controlled Pain: adequately controlled Airway Patency, RR, SpO2: stable & adequate BP & HR: stable & adequate Hydration State: stable & adequate Anesthetic Complications: no major complications apparent and Pt Satisfied with anesthetic care
--- NOTE | 2019-05-15 15:49 | Hospitalist Progress Note ---
Date of Service May 15, 2019 Assessment & Plan (1) Neurogenic claudication due to lumbar spinal stenosis: Status post lumbar decompression and fusion L3-S1 by Dr. Jenkins, POD #0 EBL 300 mL; SAM drain 180 mL Patient tolerated procedure well POD #1 Complains lots of back pain and has been on pain medications as per Ortho No radiation of pain Denies any other significant medical symptoms (2) CAD (coronary artery disease): Patient denies chest pain or shortness of breath History of CABG x2 in 2008; PCI to augustine LAD 2016 On ASA, Plavix, statin as outpatient Not on RIGO inhibitor or beta-ai Blood pressure remains stable on current medications Remained stable without any acute symptoms (3) Hyperlipidemia: Continue atorvastatin (4) Anxiety: Mood stable, continue Zoloft (5) Acid reflux: Asymptomatic, continue PPI (6) DVT prophylaxis: SCD/teds Disposition: Per primary Follow-up: PCP Dr. Mckeon upon discharge Remains medically stable Admission and Anticipated Discharge Date Admission Date: May 14, 2019 Subjective 05/15/2019 The patient was seen and examined in medical floor He is a status post L3-S1 decompression and fusion 03/13/20 Complains to have lots of back pain without radiation Bowel has not moved it Denies any other significant symptoms Review of Systems Review of Systems: All systems reviewed and are unremarkable except as noted below Musculoskeletal: + back pain (Status post lumbar surgery and is without any radiation) Physical Exam Physical Exam: Sitting on a chair with some discomfort due to ongoing back pain Constitutional: well developed, well nourished, + acute distress and + ill ap pearing Eyes: PERRL, conjunctivae normal, anicteric sclerae ENMT: external ear and nose normal, oropharynx normal Neck: trachea midline, no thyromegaly Respiratory: normal respiratory effort; no respiratory distress Auscultation: lungs clear to auscultation bilaterally Cardiovascular: Rate/Rhythm: regular rate and regular rhythm Heart Sounds: no murmur Gastrointestinal (Abdomen): Inspection/Auscultation: abdomen normal to inspection and normal bowel sounds Percussion/Palpation: abdomen soft; abdomen nontender Musculoskeletal: No acute arthritis. Neurologic: Alert, awake and oriented x3 Results & Data ([facility]) Vital Signs (Past 12 Hours) Vital Signs Temp Pulse Resp BP Pulse Ox 05/15/19 15:07 36.7 C 99 H 17 128/81 94 05/15/19 11:24 36.6 C 99 H 16 145/80 H 94 05/15/19 07:58 36.4 C L 87 16 129/89 98 05/15/19 03:45 36.4 C L 98 H 16 132/77 98 Laboratory Results Short CBC 05/15/19 Range/Units 07:17 WBC 7.76 (4.8-10.8) K/uL Hgb 11.5 L (14.0-18.0) g/dL Hct 35.6 L (42-52) % Plt Count 141 (130-400) K/uL BMP 05/15/19 07:17 Sodium 140 Potassium 3.8 Chloride 109 H Carbon Dioxide 25 BUN 13 Creatinine 0.84 Glucose 118 H Calcium 8.2 L Medications Administered Current Inpatient Medications Acetaminophen (Tylenol) 1,000 mg PO Q8H PRN PRN Reason: MILD Pain Scale 1,2,3 & Pre PT Stop: 06/13/19 12:31 Al Hydrox/Mg Hydrox/Simethicone (Maalox) 30 ml PO Q6H PRN PRN Reason: Dyspepsia Stop: 06/13/19 12:31 Aspirin (Ecotrin [facility]ctab) [facility] Stop: 06/14/19 08:59 Last Admin: 05/15/19 08:14 Dose: 81 mg Documented by: Atorvastatin Calcium (Lipitor) 80 mg PO QAM [facility] Stop: 06/14/19 08:59 Last Admin: 05/15/19 08:14 Dose: 80 mg Documented by: Bisacodyl (Dulcolax) 10 mg [place] DAILY PRN PRN Reason: Constipation Stop: 06/13/19 12:31 Diphenhydramine HCl (Benadryl Capsule) 25 mg PO Q6H PRN PRN Reason: Allergic Rhinitis/Insomnia Stop: 06/13/19 12:31 Famotidine (Pepcid) 20 mg PO Q12H PRN PRN Reason: Dyspepsia Stop: 06/13/19 12:31 Gabapentin (Neurontin) 300 mg PO TID [facility] Stop: 06/13/19 13:59 Last Admin: 05/15/19 12:44 Dose: 300 mg Documented by: Hydromorphone HCl (Dilaudid) 0.5 mg IV Q3H PRN PRN Reason: MOD pain (scale 4-6) & Pre PT Stop: 05/28/19 12:31 Last Admin: 05/14/19 16:56 Dose: 0.5 mg Documented by: Hydromorphone HCl (Dilaudid) 1 mg IV Q3H PRN PRN Reason: severe pain (scale 7-10) Stop: 05/28/19 12:31 Last Admin: 05/15/19 14:48 Dose: 1 mg Documented by: Hydroxyzine HCl (Vistaril) 25 mg PO Q8H PRN PRN Reason: Anxiety Stop: 06/13/19 12:31 Lorazepam (Ativan) 0.5 mg in 1 mls @ 0.5 mls/min IV Q8H PRN PRN Reason: Sedation/Anxiety Stop: 06/13/19 12:31 Promethazine HCl 12.5 mg/ (Sodium Chloride) 50.5 mls @ 204 mls/hr IV Q6H PRN PRN Reason: Nausea &/or Vomiting Stop: 06/13/19 12:31 Influenza Virus Vaccine Quadrival (Flu Vaccine, Do Not Administer) 1 ea N/A PRN PRN PRN Reason: Notification Stop: 06/13/19 12:31 Lorazepam (Ativan) 0.5 mg PO Q8H PRN PRN Reason: Sedation/Anxiety Stop: 06/13/19 12:31 Magnesium Hydroxide (Milk Of Magnesia) 30 ml PO DAILY PRN PRN Reason: Constipation Stop: 06/13/19 12:31 Metoclopramide HCl (Reglan) 10 mg IV Q6H PRN PRN Reason: Nausea &/or Vomiting Stop: 06/13/19 12:31 Naloxone HCl (Narcan) 0.1 mg IV Q5M PRN; Protocol PRN Reason: Oversedation/Resp Depression Stop: 06/13/19 12:31 Nitroglycerin (Nitrostat) 0.4 mg SL UD PRN PRN Reason: Chest Pain Stop: 06/13/19 12:31 Ondansetron HCl (Zofran) 4 mg IV Q6H PRN PRN Reason: Nausea &/or Vomiting Stop: 06/13/19 12:31 Ondansetron HCl (Zofran Odt) 4 mg PO Q6H PRN PRN Reason: Nausea Stop: 06/13/19 12:31 Last Admin: 05/14/19 22:36 Dose: 4 mg Documented by: Oxycodone HCl (Roxicodone Immediate Rel) 5 - 10 mg PO Q4H PRN PRN Reason: Moderate-Severe Pain & Pre PT Stop: 05/28/19 12:31 Last Admin: 05/15/19 12:44 Dose: 10 mg Documented by: Pantoprazole Sodium (Protonix) 40 mg PO QAM [facility] Stop: 06/14/19 08:59 Last Admin: 05/15/19 08:13 Dose: 40 mg Documented by: Pneumococcal Polyvalent Vaccine (Pneumococcal Vacc, Do Not Administer) 1 ea N/A PRN PRN PRN Reason: Notification Stop: 06/13/19 12:31 Polyethylene Glycol (Miralax Powder Packet) 17 gm PO Q6 [facility] Stop: 06/14/19 05:59 Last Admin: 05/15/19 12:44 Dose: 17 gm Documented by: Senna/Docusate Sodium (Senokot S) 2 tab PO HS [facility] Stop: 06/13/19 20:59 Last Admin: 05/14/19 20:26 Dose: 2 tab Documented by: Sertraline HCl (Zoloft) 50 mg PO QAM [facility] Stop: 06/14/19 08:59 Last Admin: 05/15/19 08:14 Dose: 50 mg Documented by: Sodium Biphosphate/Sodium Phosphate (Fleet Enema) 132 ml IL ONE PRN PRN Reason: Constipation Stop: 06/13/19 12:31 Tramadol HCl (Ultram) 50 - 100 mg PO Q4H PRN PRN Reason: Moderate-Severe Pain & Pre PT Stop: 06/13/19 12:31
--- NOTE | 2019-05-15 18:42 | Electrocardiogram Report ---
Test Reason : Blood Pressure : / mmHG Vent. Rate : 099 BPM Atrial Rate : 099 BPM P-R Int : 218 ms QRS Dur : 102 ms QT Int : 354 ms P-R-T Axes : 038 -26 053 degrees QTc Int : 454 ms Sinus rhythm with 1st degree A-V block Otherwise normal ECG No previous ECGs available Confirmed by Klaus Caraballo ([id number]) on 05/15/2019 6:42:34 PM Referred By: Tamir Jenkins Confirmed By:Klaus Caraballo
[2019-05-15] MEDS: DOCUSATE SODIUM/SENNA 50/8.6MG TAB PO SCH (20:21)
[2019-05-16] MEDS: ONDANSETRON 4 MG OD TAB PO PRN (02:47)
[2019-05-16] MEDS: HYDROmorphone INJ 1 MG/ML SYRINGE IV PRN ×3 (02:48→21:34)
[2019-05-16] MEDS: POLYETHYLENE (MIRALAX) 17 GM PACK PO SCH ×3 (05:42→18:02)
[2019-05-16 06:16] LABS: Basophils # (auto) 0.02 K/uL (0-0.2); Basophils % (auto) 0.3 %; Eosinophils % (auto) 4.2 %; Hematocrit (blood only) 35.8 % (42-52); Hemoglobin 11.3 g/dL (14.0-18.0); Immature Granulocytes # (auto) 0.02 K/uL (0.00-0.02); Immature Granulocytes % (auto) 0.3 %; Lymphocytes # (auto) 1.34 K/uL (1.2-3.4); Lymphocytes % (auto) 18.8 %; Mean Corpuscular Hemoglobin 30.1 pg (25-34); Mean Corpuscular Hgb Conc 31.6 g/dL (32-36); Mean Corpuscular Volume 95.2 fL (80-100); Mean Platelet Volume 10.7 fL (7.4-10.4); Monocytes # (auto) 1.01 K/uL (0.11-0.59); Monocytes % (auto) 14.2 %; Neutrophils # (auto) 4.44 K/uL (1.4-6.5); Neutrophils % (auto) 62.2 %; Platelet Count 152 K/uL (130-400); RDW Coefficient of Variation 13.9 % (11.5-14.5); RDW Standard Deviation 47.9 fL (36.4-46.3); Red Blood Count 3.76 M/uL (4.7-6.1); White Blood Count 7.13 K/uL (4.8-10.8)
[2019-05-16 06:49] LABS: BUN Creatinine Ratio 14.4 (10-20); Calcium 8.3 mg/dl (8.5-10.1); Creatinine Clr Calc Pharmacy 117.6 ml/min; Est GFR (African American) 109.6; Est GFR (Non-African American) 94.6; Potassium 3.8 mmol/L (3.5-5.1)
[2019-05-16] MEDS: ASPIRIN 81 MG ECTAB PO SCH (08:28)
[2019-05-16] MEDS: GABAPENTIN 300 MG CAP PO SCH ×3 (08:29→21:35)
[2019-05-16] MEDS: SERTRALINE HCL 50 MG TABLET PO SCH (08:29)
[2019-05-16] MEDS: PANTOprazole 40 MG TAB PO SCH (08:29)
[2019-05-16] MEDS: ATORVASTATIN 40 MG TAB PO SCH (08:29)
[2019-05-16] MEDS: OXYCODONE HCL IR 5 MG TAB (IMMEDIATE RELEASE) PO PRN ×3 (08:34→18:01)
--- NOTE | 2019-05-16 09:22 | Orthopedic Progress Note ---
Date of Service May 16, 2019 Assessment & Plan (1) Neurogenic claudication due to lumbar spinal stenosis: This time we will continue physical therapy monitor his SAM output anticipate discharge home this weekend. Present on Admission?: Yes Admission and Anticipated Discharge Date Admission Date: May 14, 2019 Subjective Back pain controlled leg symptoms improved. Physical Exam Physical Exam: Patient is in a chair at the bedside. Is good strength testing. Appears comfortable. Results & Data ([facility]) Vital Signs (Past 12 Hours) Vital Signs Temp Pulse Resp BP Pulse Ox 05/16/19 06:35 36.9 C 106 H 16 111/74 93 05/15/19 23:02 36.8 C 110 H 16 125/77 93
--- NOTE | 2019-05-16 16:02 | Hospitalist Progress Note ---
Date of Service May 16, 2019 Assessment & Plan (1) Neurogenic claudication due to lumbar spinal stenosis: Status post lumbar decompression and fusion L3-S1 by Dr. Jenkins, POD #0 EBL 300 mL; SAM drain 180 mL Patient tolerated procedure well POD #2 Complains lots of back pain and has been on pain medications as per Ortho Back pain is little less today and does not have any radiation of pain Remains stable without any significant symptoms (2) CAD (coronary artery disease): Patient denies chest pain or shortness of breath History of CABG x2 in 2008; PCI to [place] LAD 2016 On ASA, Plavix, statin as outpatient Not on RIGO inhibitor or beta-ai Blood pressure remains stable on current medications Remained stable without any acute symptoms (3) Hyperlipidemia: Continue atorvastatin (4) Anxiety: Mood stable, continue Zoloft (5) Acid reflux: Asymptomatic, continue PPI (6) DVT prophylaxis: SCD/teds Disposition: Per primary Follow-up: PCP Dr. Mckeon upon discharge Remains medically stable Admission and Anticipated Discharge Date Admission Date: May 14, 2019 Subjective 05/15/2019 The patient was seen and examined in medical floor He is a status post L3-S1 decompression and fusion 12 Complains to have lots of back pain without radiation Bowel has not moved it Denies any other significant symptoms 05/16/2019 The patient was seen and examined in medical floor He is a status post back surgery involving L3-S1 decompression and fusion POD #2 Complains some pain at the back without radiation Denies any other significant symptoms Review of Systems Review of Systems: All systems reviewed and are unremarkable except as noted below Musculoskeletal: + back pain (Status post lumbar surgery and is without any radiation) Physical Exam Physical Exam: Sitting on a chair with some discomfort due to ongoing back pain Constitutional: well developed, well nourished, + acute distress and + ill appearing Eyes: PERRL, conjunctivae normal, anicteric sclerae ENMT: external ear and nose normal, oropharynx normal Neck: trachea midline, no thyromegaly Respiratory: normal respiratory effort; no respiratory distress Auscultation: lungs clear to auscultation bilaterally Cardiovascular: Rate/Rhythm: regular rate and regular rhythm Heart Sounds: no murmur Gastrointestinal (Abdomen): Inspection/Auscultation: abdomen normal to inspection and normal bowel sounds Percussion/Palpation: abdomen soft; abdomen nontender Musculoskeletal: No acute arthritis in any joints Neurologic: Alert, awake and oriented x3 Lymphatic: no cervical or axillary lymphadenopathy Results & Data ([facility]) Vital Signs (Past 12 Hours) Vital Signs Temp Pulse Resp BP Pulse Ox 05/16/19 15:04 36.7 C 102 H 16 159/76 H 94 05/16/19 06:35 36.9 C 106 H 16 111/74 93 Laboratory Results Short CBC 05/16/19 Range/Units 05:40 WBC 7.13 (4.8-10.8) K/uL Hgb 11.3 L (14.0-18.0) g/dL Hct 35.8 L (42-52) % Plt Count 152 (130-400) K/uL BMP 05/16/19 05:40 Sodium 138 Potassium 3.8 Chloride 107 Carbon Dioxide 28 BUN 11 Creatinine 0.77 Glucose 111 H Calcium 8.3 L Medications Administered Current Inpatient Medications Acetaminophen (Tylenol) 1,000 mg PO Q8H PRN PRN Reason: MILD Pain Scale 1,2,3 & Pre PT Stop: 06/13/19 12:31 Al Hydrox/Mg Hydrox/Simethicone (Maalox) 30 ml PO Q6H PRN PRN Reason: Dyspepsia Stop: 06/13/19 12:31 Aspirin (Ecotrin Ectab) 81 mg PO [facility] Stop: 06/14/19 08:59 Last Admin: 05/16/19 08:28 Dose: 81 mg Documented by: Atorvastatin Calcium (Lipitor) [facility] Stop: 06/14/19 08:59 Last Admin: 05/16/19 08:29 Dose: 80 mg Documented by: Bisacodyl (Dulcolax) 10 mg [place] DAILY PRN PRN Reason: Constipation Stop: 06/13/19 12:31 Diphenhydramine HCl (Benadryl Capsule) 25 mg PO Q6H PRN PRN Reason: Allergic Rhinitis/Insomnia Stop: 06/13/19 12:31 Famotidine (Pepcid) 20 mg PO Q12H PRN PRN Reason: Dyspepsia Stop: 06/13/19 12:31 Gabapentin (Neurontin) 300 mg PO TID [facility] Stop: 06/13/19 13:59 Last Admin: 05/16/19 14:22 Dose: 300 mg Documented by: Hydromorphone HCl (Dilaudid) 0.5 mg IV Q3H PRN PRN Reason: MOD pain (scale 4-6) & Pre PT Stop: 05/28/19 12:31 Last Admin: 05/14/19 16:56 Dose: 0.5 mg Documented by: Hydromorphone HCl (Dilaudid) 1 mg IV Q3H PRN PRN Reason: severe pain (scale 7-10) Stop: 05/28/19 12:31 Last Admin: 05/16/19 15:45 Dose: 1 mg Documented by: Hydroxyzine HCl (Vistaril) 25 mg PO Q8H PRN PRN Reason: Anxiety Stop: 06/13/19 12:31 Lorazepam (Ativan) 0.5 mg in 1 mls @ 0.5 mls/min IV Q8H PRN PRN Reason: Sedation/Anxiety Stop: 06/13/19 12:31 Promethazine HCl 12.5 mg/ (Sodium Chloride) 50.5 mls @ 204 mls/hr IV Q6H PRN PRN Reason: Nausea &/or Vomiting Stop: 06/13/19 12:31 Influenza Virus Vaccine Quadrival (Flu Vaccine, Do Not Administer) 1 ea N/A PRN PRN PRN Reason: Notification Stop: 06/13/19 12:31 Lorazepam (Ativan) 0.5 mg PO Q8H PRN PRN Reason: Sedation/Anxiety Stop: 06/13/19 12:31 Magnesium Hydroxide (Milk Of Magnesia) 30 ml PO DAILY PRN PRN Reason: Constipation Stop: 06/13/19 12:31 Last Admin: 05/16/19 15:58 Dose: 30 ml Documented by: Metoclopramide HCl (Reglan) 10 mg IV Q6H PRN PRN Reason: Nausea &/or Vomiting Stop: 06/13/19 12:31 Naloxone HCl (Narcan) 0.1 mg IV Q5M PRN; Protocol PRN Reason: Oversedation/Resp Depression Stop: 06/13/19 12:31 Nitroglycerin (Nitrostat) 0.4 mg SL UD PRN PRN Reason: Chest Pain Stop: 06/13/19 12:31 Ondansetron HCl (Zofran) 4 mg IV Q6H PRN PRN Reason: Nausea &/or Vomiting Stop: 06/13/19 12:31 Ondansetron HCl (Zofran Odt) 4 mg PO Q6H PRN PRN Reason: Nausea Stop: 06/13/19 12:31 Last Admin: 05/16/19 02:47 Dose: 4 mg Documented by: Oxycodone HCl (Roxicodone Immediate Rel) 5 - 10 mg PO Q4H PRN PRN Reason: Moderate-Severe Pain & Pre PT Stop: 05/28/19 12:31 Last Admin: 05/16/19 12:42 Dose: 10 mg Documented by: Pantoprazole Sodium (Protonix) 40 mg PO QAM [facility] Stop: 06/14/19 08:59 Last Admin: 05/16/19 08:29 Dose: 40 mg Documented by: Pneumococcal Polyvalent Vaccine (Pneumococcal Vacc, Do Not Administer) 1 ea N/A PRN PRN PRN Reason: Notification Stop: 06/13/19 12:31 Polyethylene Glycol (Miralax Powder Packet) 17 gm PO Q6 [facility] Stop: 06/14/19 05:59 Last Admin: 05/16/19 12:42 Dose: 17 gm Documented by: Senna/Docusate Sodium (Senokot S) 2 tab PO HS [facility] Stop: 06/13/19 20:59 Last Admin: 05/15/19 20:21 Dose: 2 tab Documented by: Sertraline HCl (Zoloft) 50 mg PO QAM [facility] Stop: 06/14/19 08:59 Last Admin: 05/16/19 08:29 Dose: 50 mg Documented by: Sodium Biphosphate/Sodium Phosphate (Fleet Enema) 132 ml [place] ONE PRN PRN Reason: Constipation Stop: 06/13/19 12:31 Tramadol HCl (Ultram) 50 - 100 mg PO Q4H PRN PRN Reason: Moderate-Severe Pain & Pre PT Stop: 06/13/19 12:31
[2019-05-16] MEDS: DOCUSATE SODIUM/SENNA 50/8.6MG TAB PO SCH (21:35)
[2019-05-16] MEDS ORDERED: KETOROLAC TROMETHAMINE 15 MG/ML VIAL IV ONE (22:03)
[2019-05-17] MEDS: POLYETHYLENE (MIRALAX) 17 GM PACK PO SCH ×2 (00:01→05:38)
[2019-05-17] MEDS: OXYCODONE HCL IR 5 MG TAB (IMMEDIATE RELEASE) PO PRN ×3 (00:44→12:42)
[2019-05-17] MEDS ORDERED: Nursing to Pharmacy Communication ONE (05:39)
[2019-05-17] MEDS: ATORVASTATIN 40 MG TAB PO SCH (07:34)
[2019-05-17] MEDS: ASPIRIN 81 MG ECTAB PO SCH (07:34)
[2019-05-17] MEDS: GABAPENTIN 300 MG CAP PO SCH (07:35)
[2019-05-17] MEDS: SERTRALINE HCL 50 MG TABLET PO SCH (07:35)
[2019-05-17] MEDS: PANTOprazole 40 MG TAB PO SCH (07:35)
[2019-05-17] MEDS ORDERED: DEXAMETHASONE SOD PHOSPHATE 8 MG in SYRINGE 0 ML IV STA (09:30)
--- NOTE | 2019-05-17 09:33 | Discharge Summary ---
Date of Service May 17, 2019 Admission HPI Per Admitting Provider This is a 68-year-old male who presents with chronic persistent back and leg pain after failing extensive course of nonoperative care is here for surgical intervention. Principal Diagnosis Lumbar spinal stenosis with neurogenic claudication Discharge Data Allergies Allergy/AdvReac Type Severity Reaction Status Date / Time Penicillins Allergy Intermediate Rash Verified 05/14/19 06:05 tramadol Allergy dizziness Verified 05/14/19 13:12 and itching Consultations 05/14/19 12:32 Consult Case Management - Discharge Planning Routine Consult Hospitalist Routine Procedures Performed Operation Date: 05/14/19 07:45 Actual Procedures p L3-S1 Decompression and Fusion, Interbody Cage Insertion L4-L5 and L5-S1; Spinal Cord Monitoring(Not Applicable) - Tamir Jenkins DO Ordered Studies 05/14/19 [place] lumbar spine 2-3V Routine 05/14/19 07:45 [place] fluoroscopy <1hr Routine Hospital Course (1) Neurogenic claudication due to lumbar spinal stenosis: Patient underwent lumbar decompression fusion tolerated this well spine orthopedic for postoperative. Postop day 1 is up ambulating progressed to postop day #2 on postop day #3 bowels working well SAM drain decreasing probably. Excellent strength testing. Subsequently discharged home. Discharge orders and instructions from the chart for further review. Total Time Total Time Spent Total Time Spent (In Minutes): 20 minutes Discharge Plan Discharge Items Patient Disposition: Home - Self-Care Reason For Visit: LUMBAR SPINAL STENOSIS WO NEUROGENIC CLAUDICATION Discharge Diagnosis: lumbar stenosis Activity: As commented below Non-emergency contact: Primary Care Provider Call non-emergency contact if: you have any medication questions Follow-up/Referrals: Kiet Mckeon [Primary Care Provider] - Diet: Regular Addtl Attending Provider Instructions: ACTIVITY RECOMMENDATIONS: SELF CARE INSTRUCTIONS AFTER THORACIC/LUMBAR FUSIONS 1. You may walk to your tolerance. It is good exercise for your legs and back. Expect some back and intermittent leg aches and pains. 2. You may perform "counter-top" level activities (make a sandwich, german with a project, etc.). 3. No bending or lifting of more than 10 pounds or back twisting of any nature (roll like a log when turning in bed). 4. You may ride in a car for 20-30 minutes at a time. No driving until after your first visit with your doctor. 5. Frequent changes of position and restricting sitting to 30 minutes at a time will help limit the amount of back spasms and stiffness you may experience. 6. You may discontinue the use of ambulatory aids (cane, crutches, etc.) once your strength and confidence allow. 7. You may locomotive engineer the shower and let water strike your incision when you arrive home at least once daily. Do not take a tub bath, sit in a hot tub or go into a swimming pool until after your first recheck in the office. SPECIAL CARE INSTRUCTIONS: VERY IMPORTANT TO READ AND REVIEW A. Your surgical incision has been closed with a cosmetic suture under the skin that will dissolve in about 6 weeks. In 14 days, you can use a pair of clean scissors and cut the suture that is left outside of the skin at the ends of your incision. 1. The small skin tapes can be removed 7 days after surgery if they have not fallen off by that point. 2. You may keep the wound open to air as much as possible to promote healing after post-op day number 5 unless told otherwise by your doctor. 3. If you think the wound looks like it is becoming infected (redness or worsening drainage) and/or you are experiencing fever, chill or worsening back pain and muscle spasms, contact the office so that we may evaluate you as soon as possible. B. Complications are uncommon, but please contact us if you have any signs or symptoms of: 1. wound infection (fever higher than 102.5 degrees F, redness, separation of wound, drainage, or increasing pain from the incision) 2. blood clots in legs (pain, swelling, redness and warmth in legs) 3. urinary tract infection (fever higher than 102.5 degrees F, burning upon urination or increased frequency of urination) 4. nerve problems (inability to walk on your toes or heels, numbness, loss of bowel or bladder control) 5. any other symptoms that concern you C. Please call the office at if you have any concerns or questions about your operation or recovery. D. No smoking! Smoking drastically decreases the chance of a solid fusion. E. Do not take any anti-inflammatory medications (Indocin, Advil, Motrin, Aspirin, Naprosyn, etc.) as these may inhibit the chance of a solid fusion. Tylenol is okay to take for pain. MANAGING PAIN AFTER SPINAL SURGERY 1. Narcotic medication is intended for short-term use and will be provided for surgical pain. Surgical pain usually lasts for a period of 4-6 weeks. Narcotic medication includes Percocet, Vicodin, Darvocet, Tylenol #3 or Lortab. 2. Longer-term pain is more appropriately treated with non-narcotic medication such as Tylenol ES. 3. Muscle spasm is not appropriately treated with narcotics. Muscle relaxers such as Soma, Flexeril or Skelaxin can be used along with Tylenol ES. 4. Remember that we all live with some "aches and pains". This is not unusual or uncommon after an injury or as we get older. a. Back pain is expected and may include muscle spasms for 4 to 6 weeks after surgery. The pain should gradually improve. If the pain worsens for no apparent reason, please contact the office. b. Intermittent leg pain may also be experienced and should not be concerned about unless it worsens for no apparent reason. If so, please contact the office. 5. We will provide appropriate medication within the normal guidelines of their prescribed use. We will also be very cautious and aware of potential abuse and extended duration of patients' medication needs. a. Pain medications are for your comfort and to assist with sleep and rest so that the tissue can heal. They are not provided in order to return to normal activity and should not be used through the day. To do so or worsening pain at night can result from ongoing tissue damage and development of tolerance to the prescribed medicine. 6. Please allow 2-3 days to process refills. Prescriptions will not be mailed but must be picked up at the office. FOLLOW UP VISIT: Keep your scheduled follow-up appointment. Any questions, please call the office at . Pending Studies at Discharge: No Stand-Alone Forms: [employer], Smoking Cessation Medications and DC Order Prescriptions: New oxycodone 5 mg tablet 5 mg PO Q6H PRN (Reason: pain, severe) Qty: 30 RF: 0 Continued atorvastatin 80 mg Tablet 80 mg PO QAM RF: 0 clopidogrel 75 mg Tablet 75 mg PO QAM RF: 0 aspirin [Aspir-81] 81 mg Tablet,Delayed Release (Dr/Ec) 81 mg PO QAM RF: 0 pantoprazole 40 mg Tablet,Delayed Release (Dr/Ec) 40 mg PO QAM RF: 0 nitroglycerin [Nitrostat] 0.4 mg Tablet, Sublingual 0.4 mg sublingual UD PRN (Reason: Chest Pain) RF: 0 gabapentin 300 mg Capsule 300 mg PO TID RF: 0 sertraline 50 mg Tablet 50 mg PO QAM RF: 0 naproxen 500 mg Tablet 1,000 mg PO QAM RF: 0 Cbd Oil 1 dose PO BID RF: 0 Discharge Orders: Discharge Order (Routine); Ordered 05/17/19 Ordered By: Tamir Jenkins Admission Data Admit Date/Time: 05/14/19 11:41 Attending Provider: Tamir Jenkins Admit Provider: Tamir Jenkins Primary Care Provider: Kiet Mckeon Other Providers: Joel Noe ; Curt Solis
--- NOTE | 2019-05-17 11:06 | Hospitalist Progress Note ---
Date of Service May 17, 2019 Assessment & Plan (1) Neurogenic claudication due to lumbar spinal stenosis: Status post lumbar decompression and fusion L3-S1 by Dr. Jenkins, POD #0 EBL 300 mL; SAM drain 180 mL Patient tolerated procedure well POD #3 Feeling a lot better today and is ambulating in the room without much difficulty Medically stable to be discharged (2) CAD (coronary artery disease): Patient denies chest pain or shortness of breath History of CABG x2 in 2008; PCI to [place] LAD 2016 On ASA, Plavix, statin as outpatient Not on RIGO inhibitor or beta-ai Blood pressure remains stable on current medications No acute symptoms (3) Hyperlipidemia: Continue atorvastatin (4) Anxiety: Mood stable, continue Zoloft (5) Acid reflux: Asymptomatic, continue PPI (6) DVT prophylaxis: SCD/teds Disposition: Per primary Follow-up: PCP Dr. Mckeon upon discharge Remains medically stable Admission and Anticipated Discharge Date Admission Date: May 14, 2019 Subjective 05/15/2019 The patient was seen and examined in medical floor He is a status post L3-S1 decompression and fusion 12 Complains to have lots of back pain without radiation Bowel has not moved it Denies any other significant symptoms 05/16/2019 The patient was seen and examined in medical floor He is a status post back surgery involving L3-S1 decompression and fusion POD #2 Complains some pain at the back without radiation Denies any other significant symptoms 05/17/2019 The patient was seen and examined in medical floor He has been doing a lot better today and has been ambulating with some pain at the back He does not have any radiation of pain Denies any other significant symptoms Review of Systems Review of Systems: All systems reviewed and are unremarkable except as noted below Musculoskeletal: + back pain (Status post lumbar surgery and is without any radiation) Physical Exam Physical Exam: Ambulating in the room with some pain at the back Constitutional: well developed, well nourished, + acute distress and + ill appearing Eyes: PERRL, conjunctivae normal, anicteric sclerae ENMT: external ear and nose normal, oropharynx normal Neck: trachea midline, no thyromegaly Respiratory: normal respiratory effort; no respiratory distress Auscultation: lungs clear to auscultation bilaterally Cardiovascular: Rate/Rhythm: regular rate and regular rhythm Heart Sounds: no murmur Gastrointestinal (Abdomen): Inspection/Auscultation: abdomen normal to inspection and normal bowel sounds Percussion/Palpation: abdomen soft; abdo men nontender Musculoskeletal: Back pain Neurologic: Alert, awake and oriented x3 Lymphatic: no cervical or axillary lymphadenopathy Results & Data ([facility]) Vital Signs (Past 12 Hours) Vital Signs Temp Pulse Pulse Resp BP BP Pulse Ox 05/17/19 10:17 36.9 C 97 H 110 H 16 118/76 141/94 H 95 05/17/19 06:05 36.9 C 97 H 16 141/94 H 95 Medications Administered Current Inpatient Medications Acetaminophen (Tylenol) 1,000 mg PO Q8H PRN PRN Reason: MILD Pain Scale 1,2,3 & Pre PT Stop: 06/13/19 12:31 Al Hydrox/Mg Hydrox/Simethicone (Maalox) 30 ml PO Q6H PRN PRN Reason: Dyspepsia Stop: 06/13/19 12:31 [facility]ab) [facility] Stop: 06/14/19 08:59 Last Admin: 05/17/19 07:34 Dose: 81 mg Documented by: Atorvastatin Calcium (Lipitor) 80 mg PO QAM [facility] Stop: 06/14/19 08:59 Last Admin: 05/17/19 07:34 Dose: 80 mg Documented by: Bisacodyl (Dulcolax) 10 mg IN DAILY PRN PRN Reason: Constipation Stop: 06/13/19 12:31 Diphenhydramine HCl (Benadryl Capsule) 25 mg PO Q6H PRN PRN Reason: Allergic Rhinitis/Insomnia Stop: 06/13/19 12:31 Famotidine (Pepcid) 20 mg PO Q12H PRN PRN Reason: Dyspepsia Stop: 06/13/19 12:31 Gabapentin (Neurontin) 300 mg PO TID [facility] Stop: 06/13/19 13:59 Last Admin: 05/17/19 07:35 Dose: 300 mg Documented by: Hydromorphone HCl (Dilaudid) 0.5 mg IV Q3H PRN PRN Reason: MOD pain (scale 4-6) & Pre PT Stop: 05/28/19 12:31 Last Admin: 05/14/19 16:56 Dose: 0.5 mg Documented by: Hydromorphone HCl (Dilaudid) 1 mg IV Q3H PRN PRN Reason: severe pain (scale 7-10) Stop: 05/28/19 12:31 Last Admin: 05/16/19 21:34 Dose: 1 mg Documented by: Hydroxyzine HCl (Vistaril) 25 mg PO Q8H PRN PRN Reason: Anxiety Stop: 06/13/19 12:31 Lorazepam (Ativan) 0.5 mg in 1 mls @ 0.5 mls/min IV Q8H PRN PRN Reason: Sedation/Anxiety Stop: 06/13/19 12:31 Promethazine HCl 12.5 mg/ (Sodium Chloride) 50.5 mls @ 204 mls/hr IV Q6H PRN PRN Reason: Nausea &/or Vomiting Stop: 06/13/19 12:31 Influenza Virus Vaccine Quadrival (Flu Vaccine, Do Not Administer) 1 ea N/A PRN PRN PRN Reason: Notification Stop: 06/13/19 12:31 Lorazepam (Ativan) 0.5 mg PO Q8H PRN PRN Reason: Sedation/Anxiety Stop: 06/13/19 12:31 Magnesium Hydroxide (Milk Of Magnesia) 30 ml PO DAILY PRN PRN Reason: Constipation Stop: 06/13/19 12:31 Last Admin: 05/16/19 15:58 Dose: 30 ml Documented by: Metoclopramide HCl (Reglan) 10 mg IV Q6H PRN PRN Reason: Nausea &/or Vomiting Stop: 06/13/19 12:31 Naloxone HCl (Narcan) 0.1 mg IV Q5M PRN; Protocol PRN Reason: Oversedation/Resp Depression Stop: 06/13/19 12:31 Nitroglycerin (Nitrostat) 0.4 mg SL UD PRN PRN Reason: Chest Pain Stop: 06/13/19 12:31 Ondansetron HCl (Zofran) 4 mg IV Q6H PRN PRN Reason: Nausea &/or Vomiting Stop: 06/13/19 12:31 Ondansetron HCl (Zofran Odt) 4 mg PO Q6H PRN PRN Reason: Nausea Stop: 06/13/19 12:31 Last Admin: 05/16/19 02:47 Dose: 4 mg Documented by: Oxycodone HCl (Roxicodone Immediate Rel) 5 - 10 mg PO Q4H PRN PRN Reason: Moderate-Severe Pain & Pre PT Stop: 05/28/19 12:31 Last Admin: 05/17/19 05:48 Dose: 10 mg Documented by: Pantoprazole Sodium (Protonix) [facility] Stop: 06/14/19 08:59 Last Admin: 05/17/19 07:35 Dose: 40 mg Documented by: Pneumococcal Polyvalent Vaccine (Pneumococcal Vacc, Do Not Administer) 1 ea N/A PRN PRN PRN Reason: Notification Stop: 06/13/19 12:31 Senna/Docusate Sodium (Senokot S) 2 tab PO HS [facility] Stop: 06/13/19 20:59 Last Admin: 05/16/19 21:35 Dose: 2 tab Documented by: Sertraline HCl (Zoloft) [facility] Stop: 06/14/19 08:59 Last Admin: 05/17/19 07:35 Dose: 50 mg Documented by: Sodium Biphosphate/Sodium Phosphate (Fleet Enema) 132 ml IN ONE PRN PRN Reason: Constipation Stop: 06/13/19 12:31 Tramadol HCl (Ultram) 50 - 100 mg PO Q4H PRN PRN Reason: Moderate-Severe Pain & Pre PT Stop: 06/13/19 12:31 Last Admin: 05/17/19 07:39 Dose: 100 mg Documented by:
== END 2019-05-17 13:20 | disposition home or self-care (01) | DRG 455 ==
LOC: ASU 05:50 → 3E 11:41

== ENCOUNTER 2021-03-21 07:03 | Inpatient (IN) ==
--- NOTE | 2021-03-14 13:53 | Anesthesiology Consultation ---
Date of Service March 14, 2021 Assessment & Plan (1) Encounter for pre-operative examination: - Awaiting surgeon-ordered PCP preop evaluation. - COVID surge/OR limitations: Awaiting surgeon's medical necessity. - Per cardiology note (12/28/20): patient is considered "moderate risk" for cardiac complications for proposed surgery. Optimal cardiac monitoring is required during procedure - S/P L3-S1 decompression and fusion (05/14/19):Done under GA with Grade 2 view with MAC#3, ETT #7.5. Chart Review Chart Review: Patient NOT seen in Pre Admission Testing History Surgery Operation Date: 03/21/21 11:25 Proposed Procedures p L2-L3 Decompression and Fusion, L3-S1 Hardware Removal, Spinal Cord Monitoring - Tamir Jenkins DO Height/Weight Height: 6 ft Weight: 103.419 kg Allergies Allergy/AdvReac Type Severity Reaction Status Date / Time Penicillins Allergy Intermediate Rash (as Verified 03/14/21 13:45 child) tramadol Allergy Unknown Dizziness, Verified 03/14/21 13:45 itching (subsequently tolerated without issue) Medications Home Medications Medication Instructions Recorded Confirmed Last Taken atorvastatin 80 mg tablet 40 mg PO QPM 04/17/19 03/14/21 05/14/19 03:30 clopidogrel 75 mg tablet 75 mg PO QAM 04/17/19 03/14/21 05/06/19 07:30 nitroglycerin 0.4 mg sublingual 0.4 mg SUBLINGUAL UD PRN 04/17/19 03/14/21 Unknown tablet (Nitrostat) pantoprazole 40 mg tablet,delayed 40 mg PO QAM 04/17/19 03/14/21 05/14/19 03:30 release sertraline 50 mg tablet 50 mg PO QAM 04/17/19 03/14/21 05/13/19 19:00 acetaminophen 650 mg 1,300 mg PO Q12H PRN 12/31/20 03/14/21 Unknown tablet,extended release albuterol sulfate 90 mcg/actuation 2 puff INHALATION Q6H PRN 12/31/20 03/14/21 Unknown aerosol inhaler aspirin 81 mg capsule 81 mg PO QAM 12/31/20 03/14/21 Unknown alirocumab 75 mg/mL subcutaneous 75 mg SUBCUT MONTHLY 03/14/21 03/14/21 Unknown pen injector (Praluent Pen) isosorbide mononitrate 30 mg 30 mg PO QAM 03/14/21 03/14/21 Unknown tablet,extended release 24 hr metoprolol succinate 25 mg 25 mg PO QAM 03/14/21 03/14/21 Unknown tablet,extended release 24 hr Past Medical History Medical History Acid reflux Controlled Anxiety Asthma "Stable" Exercise induced asthma CAD (coronary artery disease) PCI to LAD via HEADLEY graft (2015), CABG x3 (2008), most recent cardiac cath 07/2019 History of cardiac arrhythmia Per cardiology office visit note 01/2019, hx SVT likely a. flutter single episode detected on remote event monitor- cardio/EP monitoring-F/U DR GEIGER History of ischemic cardiomyopathy EF 45% on July 2019 ECHO History of kidney stones No recent issues History of neck problems Arthritis Hyperlipidemia Past Family History Family History Daughter Family history of diabetes mellitus Mother Family history of diabetes mellitus Other Coronary heart disease Past Surgical History Surgical History Fusion of spine LUMBAR History of cardiac cath 2016 (stent x1) 2018 (no stents/patent grafts) 07/2019 (ALIRIO Armstrong- no stents) History of cholecystectomy History of colonoscopy 2017 History of cystoscopy Kidney stone removal History of heart bypass surgery CABG x 3 (2008) History of lithotripsy History of shoulder surgery Right x3 History of shoulder surgery Right biceps repair Nausea and vomiting after administration of anesthetic agent Severe (in the past) Social History Smoking Status: Never smoker Do You Dip or Chew Tobacco: No Hx Alcohol Use: Yes Alcohol type: beer alcohol intake frequency: a few times a month Hx Substance Use: No substance use type: does not use Substance Use Type Other:: CBD OIL Testing Laboratory Results 01/05/21 WBC 6.24 H/H 13.9/42.2 PLATELETS 228 SODIUM 140 POTASSIUM 3.9 CHLORIDE 111 CO2 20 BUN 15 CREATININE 0.67 GLUCOSE 107 PT 10.3 PTT 23.0 INR 1.0 UA negative TYPE AND SCREEN A+Ab- Electrocardiogram Date: 01/05/21 SR with 1st degree AVB at 67bpm. Otherwise normal EKG per cardio Chest X-Ray Date: 01/05/21 Findings: + NAD Echocardiogram Date: 07/31/19 EF: 45% LV Function: dysfunctional (Decreased) Other Findings: + diastolic dysfunction (Grade I ) Valvular Disease: + MR (Mild) Left atrium mildly dilated. Mild AR. Mild AR. Stress Test Date: 07/31/19 Type: nuclear Increase GI uptake and mild soft tissue attenuation. Good quality study. Gated MPI wall motion demonstrates septal dyskinesis and mildly reduced EF. There is a moderate intensity, medium to large in size, partial reversible MPI defect of the septum, anterior, apical and distal inferior myocardium. This suggests LAD territory infarct and agustin-infarct ischemia and +/- artifact. Study is moderately abnormal, compared to prior study dated 05/10/17, there remains LAD territory ischemia but now also with infarct. Discuss with cardiology (Pt had subsequent cardiac cath 08/15/19) Cardiac Catheterization Date: 08/15/19 LM =91% distal occlusion. LAD =90% ostial stenosis. Severe calcification in 100% occluded in the proximal segment. Circumflex =100% occluded at the ostium. RCA = proximal diffuse disease up to 95% stenosis. Mid segment is 100% occluded. PDA and posterior lateral branch are long appear to be up to 1 mm in diameter as a fill via [id number] collateralization. Grafts: HEADLEY to LADlarge caliber and widely patent graft. SVG to obtuse marginal branchlarge caliber widely patent graft. Conclusions: Severe multivessel ek[place] coronary disease including chronic total occlusion of RCA, circumflex, LAD with subtotal occlusion of left main. Therefore percutaneous revascularization through ek[place] vessels is not possible. Widely patent HEADLEY to LAD and SVG to obtuse marginal graft. Good antegrade flow to the ek[place] vessels which are relatively disease. Good left and right collateralization to the distal RCA vessels. Moderately reduced LV systolic function. No targets for percutaneous revascularization. Anatomy is angiographically unchanged from prior catheterization.
[~2021-03-21 07:03] MED LIST: ACETAMINOPHEN 500 MG TAB PO SCH; CLINDAMYCIN 600 MG/54 ML BAG IV SCH; CeleBREX 200 MG CAP PO SCH; GABAPENTIN 300 MG CAP PO SCH; LR 15ML/HR IV SCH
[2021-03-21] MEDS ORDERED: BUPIVACAINE 0.5 % 5 MG/1 ML MPF 30ML VIAL ONE (07:47)
[2021-03-21] MEDS ORDERED: EPINEPHrine INJ 1 MG/ML AMP ONE (07:47)
--- NOTE | 2021-03-21 07:53 | History & Physical Bridge Note ---
Date of Service March 21, 2021 History & Physical Bridge Note I have examined the patient, reviewed the History & Physical and in the interval since the performance of the History & Physical I have noted the following changes of clinical significance: no changes noted
--- NOTE | 2021-03-21 07:55 | History & Physical Report ---
Date of Service March 21, 2021 Assessment & Plan (1) Neurogenic claudication due to lumbar spinal stenosis: Plan: L2-L3 decompression fusion, L3-S1 hardware removal History of Present Illness Chief Complaint: Back and leg pain Primary Care Provider: Kiet Mckeon This is a 62-year-old male well-known to me the presents with chronic persistent back and leg pain. Failing course of nonoperative care is here for surgical invention. Allergies Allergy/AdvReac Type Severity Reaction Status Date / Time Penicillins Allergy Intermediate Rash (as Verified 03/21/21 07:30 child) tramadol Allergy Unknown Dizziness, Verified 03/21/21 07:30 itching (subsequently tolerated without issue) Home Medications Medication Instructions Recorded Confirmed Type atorvastatin 80 mg tablet 40 mg PO QPM 04/17/19 03/21/21 History clopidogrel 75 mg tablet 75 mg PO QAM 04/17/19 03/21/21 History nitroglycerin 0.4 mg sublingual 0.4 mg SUBLINGUAL UD PRN 04/17/19 03/21/21 History tablet (Nitrostat) pantoprazole 40 mg tablet,delayed 40 mg PO QAM 04/17/19 03/21/21 History release sertraline 50 mg tablet 50 mg PO QAM 04/17/19 03/21/21 History acetaminophen 650 mg 1,300 mg PO Q12H PRN 12/31/20 03/21/21 History tablet,extended release albuterol sulfate 90 mcg/actuation 2 puff INHALATION Q6H PRN 12/31/20 03/21/21 History aerosol inhaler aspirin 81 mg capsule 81 mg PO QAM 12/31/20 03/21/21 History alirocumab 75 mg/mL subcutaneous 75 mg SUBCUT MONTHLY 03/14/21 03/21/21 History pen injector (Praluent Pen) isosorbide mononitrate 30 mg 30 mg PO QAM 03/14/21 03/21/21 History tablet,extended release 24 hr metoprolol succinate 25 mg 25 mg PO QAM 03/14/21 03/21/21 History tablet,extended release 24 hr Past Med/Surg History Medical History Acid reflux Controlled Anxiety Asthma "Stable" Exercise induced asthma CAD (coronary artery disease) PCI to LAD via HEADLEY graft (2015), CABG x3 (2008), most recent cardiac cath 07/2019 History of cardiac arrhythmia Per cardiology office visit note 01/2019, hx SVT likely a. flutter single episode detected on remote event monitor- cardio/EP monitoring-F/U DR GEIGER History of ischemic cardiomyopathy EF 45% on July 2019 ECHO History of kidney stones No recent issues History of neck problems Arthritis Hyperlipidemia Surgical History Fusion of spine LUMBAR History of cardiac cath 2016 (stent x1) 2018 (no stents/patent grafts) 07/2019 (ALIRIO Nathaniel- no stents) History of cholecystectomy History of colonoscopy 2017 History of cystoscopy Kidney stone removal History of heart bypass surgery CABG x 3 (2008) History of lithotripsy History of shoulder surgery Right x3 History of shoulder surgery Right biceps repair Nausea and vomiting after administration of anesthetic agent Severe (in the past) Family History Daughter Family history of diabetes mellitus Mother Family history of diabetes mellitus Other Coronary heart disease Social History (Updated 12/31/20 @ 10:21 by Ashley Zazueta RN) Smoking Status: Never smoker Second Hand Exposure: No; Do You Dip or Chew Tobacco: No; Tobacco Cessation Education Requested by Patient: No Hx Alcohol Use: Yes Alcohol type: beer Alcohol Intake Frequency Comment: To light beers daily Hx Substance Use: No Preferred Language: Sudanese Communication Ability: Effective Development Lead Required: No Beliefs That Will Affect Care: None marital status: Current Living Situation: Spouse current occupational status: retired Other Information That Helps Us Care for You: No Feels Safe at Home: Yes Safety Concerns: Feels Safe At This Time Assistive Devices: Glasses Physical Exam Physical Exam: Patient is a alert and oriented Heart regular rate and rhythm Lungs clear Results & Data ([place]) Vital Signs (Past 12 Hours) Vital Signs Temp Pulse Resp BP Pulse Ox 03/21/21 07:28 36.6 C 74 20 139/84 96
[2021-03-21] MEDS ORDERED: PROPOFOL IV EMULSION 10 MG/ML 20 ML VIAL IV ONE (08:07)
[2021-03-21] MEDS ORDERED: MIDAZOLAM HCL 1 MG/ML 2ML VIAL ONE (08:07)
[2021-03-21] MEDS ORDERED: NEOSTIGMINE METHYLSULFATE 1 MG/ML 10ML VIAL ONE (08:07)
[2021-03-21] MEDS ORDERED: LIDOCAINE 2% 2 ML VIAL/AMP(20MG/ML) INFIL ONE (08:07)
[2021-03-21] MEDS ORDERED: DEXAMETHASONE SOD INJ 4 MG/ML VIAL ONE (08:07)
[2021-03-21] MEDS ORDERED: fentaNYL citrate 100 MCG/2 ML VIAL ONE (08:07)
[2021-03-21] MEDS ORDERED: GLYCOPYRROLATE 0.2 MG/ML VIAL ONE (08:07)
[2021-03-21] MEDS ORDERED: ONDANSETRON INJ 2 MG/ML 2 ML VIAL ONE (08:07)
[2021-03-21] MEDS ORDERED: ROCURONIUM BROMIDE 10 MG/ML 5 ML VIAL IV ONE (08:07)
[2021-03-21] MEDS ORDERED: HYDROmorphone INJ 2 MG/ML SYR/VIAL ONE (08:08)
[2021-03-21] MEDS ORDERED: ePHEDrine sulfate 50 MG/ML AMP IV PRN (08:49)
[2021-03-21] MEDS ORDERED: ATROPINE SULFATE 0.1 MG/ML 10ML SYR IV PRN (08:49)
[2021-03-21] MEDS ORDERED: ONDANSETRON INJ 2 MG/ML 2 ML VIAL IV PRN ×2 (08:49→14:50)
[2021-03-21] MEDS ORDERED: CLINDAMYCIN PHOS 300 MG/2 ML VIAL IV ONE (10:01)
[2021-03-21] MEDS ORDERED: FLOSEAL HEMOSTATIC MATRIX 10ML TOP ONE (10:01)
[2021-03-21] MEDS ORDERED: ALBUMIN HUMAN 5% 12.5 GM/250 ML VIAL IV ONE (10:06)
--- NOTE | 2021-03-21 11:43 | Operative Report ---
Post Operative Report Pre & Post Diagnosis Operation Date: 03/21/21 08:45 Pre-Op Diagnosis: Neurogenic Claudication Due to Lumbar Spinal Stenosis L2-L3, Previous Fusion L3- S1 Post-Op Diagnosis: Neurogenic Claudication Due to Lumbar Spinal Stenosis L2-L3, Previous Fusion L3- S1 I identified the patient and participated in the time-out.: Yes Procedure Operation Date: 03/21/21 08:45 Actual Procedures #1 Removal of posterior segmental instrumentation L3-S1. #2 exploration of fusion L3-S1. #3 lumbar decompression with bilateral medial facetectomies and f oraminotomies L1-L2 L2-L3. #4 posterior spinal fusion L2-L3. #5 placement posterior segmental instrumentation L2-S1. #6 interbody fusion L2-L3. #7 placement of peek cage 12 x 26 mm L2-L3. #8 placement locally harvested morselized autograft in the posterior gutters. #9 placement infuse collagen sponge, master graft in the posterior lateral gutters and I factor in the interbody space. Surgeon Tamir Jenkins, DO Cad Intern None Estimated Blood Loss 600 Findings See Below The patient is 6 foot tall weighing over 104 kg with a BMI in excess of 31. This combined with an EBL of greater than 600 cc created significant technical difficulty had at least 50% increase to the operative time. Specimens None Indications This is a 70-year-old male well-known to me the presents with marked decline in status with back and bilateral leg pain and weakness. He is here for the above- mentioned procedure. Description of Procedure Patient was met with identified informed consent obtained. Patient was then taken to the operative suite underwent intubation placed in a prone position on the Edwardo table on top of the Yousuf frame. All bony prominences well-padded eyes inspected to ensure no external pressure placed upon the. This point the lumbar spine was prepped and draped in a normal sterile fashion. Sharp dissection with the assistance of Bovie cautery was performed down to and exposing the lamina and transverse processes of L2 and instrumentation at L3-L4-L5 and S1 levels bilaterally. Then proceeded move the hardware bilaterally explore the fusion mass noting it to be mature and intact. I then performed a complete laminectomy of L2 partial laminectomy L1 including bilateral medial facetectomies and foraminotomies addressing severe spinal stenosis. Pedicle screws then placed in L 2 L3-L4 4 and S1 bilaterally with assistance of fluoroscopy and the properly sized radha contoured and placed. By way of a transforaminal approach on the right a complete discectomy of L to L3 was performed endplates curetted to subcortical being bone and a 12 x 26 mm peek cage filled I factor tapped in position. The rods were then compressed locked in final position bilaterally. The transverse processes of L2 and L3 burred to subcortical bleeding bone. Infuse collagen sponge master graft local autograft was placed in the posterior gutters. 15 round SAM drain inserted. The incision was then closed with 1 Vicryl in a fashion 2-0 Vicryl subcutaneously and 4 Monocryl for final closure. Steri-Strips dressings placed. Patient was awakened taken to PACU stable condition. Please note spinal cord monitoring was utilized at the procedure no changes noted. I attest to the content of the Intraoperative Record and any orders documented therein. Any exceptions are noted below.
--- NOTE | 2021-03-21 11:52 | Fluoroscopy Report ---
FL lumbar spine 2-3V CLINICAL HISTORY: L2-L3 D/F/I, L3-S1 HARDWARE REMOVAL COMPARISON STUDY: Lumbar spine 05/14/2019. FLUOROSCOPY TIME: 16 seconds. FINDINGS: 3 fluoroscopic spot images of the lumbar spine demonstrate posterior decompression and fusi on from L2 through S1 with pedicle screws and rods. The visualized hardware appears intact. IMPRESSION: Fluoroscopic assistance provided for lumbar surgery. ACT 112: Negative or not required by law. Electronically signed by: Tex Cheung M.D. 03/21/2021 11:50 AM
[2021-03-21 12:11] LABS: iSTAT Creatinine 0.8 mg/dl (0.6-1.3); iSTAT Hemoglobin 12.6 g/dl (14.0-18.0); iSTAT Ionized Calcium 1.28 mmol/l (1.12-1.32); iSTAT Potassium 4.9 mmol/L (3.3-5.0)
[2021-03-21] MEDS: fentaNYL citrate 100 MCG/2 ML VIAL IV PRN ×2 (12:15→12:25)
[2021-03-21] MEDS: HYDROmorphone INJ 2 MG/ML SYR/VIAL IV PRN ×2 (12:40→12:50)
--- NOTE | 2021-03-21 13:44 | Anesthesiology Progress Note ---
Date of Service March 21, 2021 Anesthesia Post Procedure Vital Signs Vital Signs: Temp Pulse Pulse Resp BP BP Pulse Ox 03/21/21 13:30 77 12 98/54 L 95 03/21/21 13:15 67 18 91/62 L 93 03/21/21 13:05 36.5 C 78 16 98/62 L 94 03/21/21 12:55 78 20 111/65 94 03/21/21 12:45 80 18 95/69 L 91 03/21/21 12:35 36.1 C L 76 12 113/69 96 03/21/21 12:25 74 18 111/73 97 03/21/21 12:15 78 20 109/71 97 03/21/21 12:05 77 16 111/65 99 03/21/21 11:57 36.0 C L 76 18 112/67 97 03/21/21 07:28 36.6 C 74 20 139/84 96 Pain Intensity Lower Back: Pain Intensity: 5 Transfer of Care Handoff Completed per policy Notes Mental Status: alert / awake / arousable and participated in evaluation Patient Amnestic to Procedure: Yes Nausea / Vomiting: adequately controlled Pain: adequately controlled Airway Patency, RR, SpO2: stable & adequate BP & HR: stable & adequate Hydration State: stable & adequate Anesthetic Complications: no major complications apparent
[2021-03-21] MEDS ORDERED: diphenhydrAMINE 50 MG/ML VIAL IV STA (13:45)
[2021-03-21] MEDS ORDERED: diphenhydrAMINE 50 MG/ML VIAL ONE (13:48)
[2021-03-21] MEDS ORDERED: FAMOTIDINE 20 MG TAB PO PRN (14:50)
[2021-03-21] MEDS ORDERED: HYDROmorphone INJ 0.5 MG/0.5 ML SYR IV PRN (14:50)
[2021-03-21] MEDS ORDERED: LORazepam 0.5 MG TAB PO PRN (14:50)
[2021-03-21] MEDS ORDERED: METOCLOPRAMIDE HCL INJ 5 MG/ML 2 ML VIAL IV PRN (14:50)
[2021-03-21] MEDS ORDERED: ACETAMINOPHEN 500 MG TAB PO PRN (14:50)
[2021-03-21] MEDS ORDERED: NALOXONE HCL 0.4 MG/1 ML VIAL/CARP IV PRN (14:50)
[2021-03-21] MEDS ORDERED: DO NOT ADMINISTER PNEUMOCOCCAL VACCINE PRN (14:50)
[2021-03-21] MEDS ORDERED: DO NOT ADMINISTER FLU VACCINE PRN (14:50)
[2021-03-21] MEDS ORDERED: ACETAMINOPHEN 1,000 MG/100 ML VIAL IV PRN (14:50)
[2021-03-21] MEDS ORDERED: hydrOXYzine HCl 25 MG TAB PO PRN (14:50)
[2021-03-21] MEDS ORDERED: PROMETHAZINE HCL 12.5 MG in SODIUM CHLORIDE 0.9% 50 ML IV PRN (14:50)
[2021-03-21] MEDS ORDERED: SOD PHOSPHATE/SOD BIPHOSPHATE ENEMA 132 ML BTL PR PRN (14:50)
[2021-03-21] MEDS ORDERED: diphenhydrAMINE Capsule 25 MG CAP PO PRN (14:50)
[2021-03-21] MEDS ORDERED: bisacodyL 10 MG SUPP PR PRN (14:50)
[2021-03-21] MEDS ORDERED: NITROGLYCERIN SL 0.4 MG/TAB TAB SL PRN (14:50)
[2021-03-21] MEDS ORDERED: MAGNESIUM HYDROXIDE SUSP 30 ML UDC PO PRN (14:50)
[2021-03-21] MEDS ORDERED: LORazepam 0.5 MG/1 ML VIAL IV PRN (14:50)
[2021-03-21] MEDS ORDERED: ALUMINUM/MAGNESIUM SUSP 30 ML UDC PO PRN (14:50)
[2021-03-21] MEDS ORDERED: ONDANSETRON 4 MG OD TAB PO PRN (14:50)
[2021-03-21] MEDS: oxyCODONE HCL IR 5 MG TAB (IMMEDIATE RELEASE) PO PRN (15:01)
--- NOTE | 2021-03-21 15:39 | Hospitalist Consultation ---
Date of Consultation March 21, 2021 Assessment & Plan (1) S/P spinal surgery: (2) CAD (coronary artery disease): (3) Neurogenic claudication due to lumbar spinal stenosis: (4) Hyperlipidemia: (5) Anxiety: (6) Acid reflux: S/p spinal surgery POD#0 s/p lumbar decomp and fusion removal of posterior segmental instrumentation L3-S1, lumbar decompression with bilateral medial facetectomies and foraminotomies L1-L2 L2-L3 and posterior spinal fusion L2-L3 by Dr. Jenkins Per ortho for pain control, wound care, anticoagulation and activities Monitor H&H (pre-op hgb 12.6, EBL 600ml), continue incentive spirometry, PT/OT when appropriate CAD (coronary artery disease) Patient denies chest pain or shortness of breath History of CABG x2 in 2008; PCI to curyung LAD 2015 Continue aspirin, statin, Toprol Resume Plavix as soon as possible per surgical service Not on RIGO inhibitor Hyperlipidemia Continue atorvastatin, last received Praluent monthly injection on 03/19/21 Anxiety Continue Zoloft Acid reflux Continue PPI DVT Ppx: per primary service PCP: Linda Patient seen in collaboration with Dr. Sims. Please see addendum. Thank you for this consultation. We will follow the patient with you during their hospital stay. You can reach a member of the [facility] Team 16/10 via pager @ [phone]. Supervising Physician Co-Signing Physician Notes Pt seen and examined by me, care coordinated w/ Rod Mays PA-C, pls refer to her note above for further detail. Pt is a 70yo M with CAD, hx of CABG x2, hx of ischemic cardiomyopathy, hyperlipidemia, GERD, who is POD #0 s/p lumbar decompression and fusion by Dr. Jenkins. Pt is currently sitting up in bed, eating dinner, in NAD. He is alert oriented and answering questions appropriately. Reports back pain but says his legs feel better already. There is no LE sensory loss noted and pt is moving LEs. Heart sounds regular. Lung sounds clear to auscultation. Abdomen soft, nontender, nondistended. Skin is warm and dry. Blood loss 600cc per operative report. Will closely monitor hemodynamic status and H&H. Off Plavix prior to surgery, restart by the surgeon when appropriate. Evelin Sims MD History of Present Illness Reason for Consultation: postop med mgmt Attending Physician: Tamir Jenkins DO History of Present Illness This is a 70yo M with a PMH of CAD with history of CABG x2, history of ischemic cardiomyopathy, hyperlipidemia, GERD, anxiety and other medical problems listed below who is POD #0 s/p lumbar decompression and fusion by Dr. Jenkins. Some surgical site discomfort postoperatively. Recently received pain medication from RN. Denies any pain or numbness in bilateral lower extremities. No fever, chills, headache, lightheadedness, chest pain, palpitations, shortness of breath, nausea, vomiting, abdominal pain, dysuria, diarrhea constipation. Follows with Dr. Mckeon for primary care. Allergies Allergy/AdvReac Type Severity Reaction Status Date / Time Penicillins Allergy Intermediate Rash (as Verified 03/21/21 07:30 child) tramadol Allergy Unknown Dizziness, Verified 03/21/21 07:30 itching (subsequently tolerated without issue) Home Medications Medication Instructions Recorded Confirmed Type atorvastatin 80 mg tablet 40 mg PO QPM 04/17/19 03/21/21 History clopidogrel 75 mg tablet 75 mg PO QAM 04/17/19 03/21/21 History nitroglycerin 0.4 mg sublingual 0.4 mg SUBLINGUAL UD PRN 04/17/19 03/21/21 History tablet (Nitrostat) pantoprazole 40 mg tablet,delayed 40 mg PO QAM 04/17/19 03/21/21 History release sertraline 50 mg tablet 50 mg PO HS 04/17/19 03/21/21 History acetaminophen 650 mg 1,300 mg PO Q12H PRN 12/31/20 03/21/21 History tablet,extended release albuterol sulfate 90 mcg/actuation 2 puff INHALATION Q6H PRN 12/31/20 03/21/21 History aerosol inhaler aspirin 81 mg capsule 81 mg PO QAM 12/31/20 03/21/21 History alirocumab 75 mg/mL subcutaneous 75 mg SUBCUT MONTHLY 03/14/21 03/21/21 History pen injector (Praluent Pen) isosorbide mononitrate 30 mg 30 mg PO QAM 03/14/21 03/21/21 History tablet,extended release 24 hr metoprolol succinate 25 mg 25 mg PO QAM 03/14/21 03/21/21 History tablet,extended release 24 hr Patient History Medical History Acid reflux Controlled Anxiety Asthma "Stable" Exercise induced asthma CAD (coronary artery disease) PCI to LAD via HEADLEY graft (2015), CABG x3 (2008), most recent cardiac cath 07/2019 History of cardiac arrhythmia Per cardiology office visit note 01/2019, hx SVT likely a. flutter single episode detected on remote event monitor- cardio/EP monitoring-F/U DR GEIGER History of ischemic cardiomyopathy EF 45% on July 2019 ECHO History of kidney stones No recent issues History of neck problems Arthritis Hyperlipidemia Surgical History Fusion of spine LUMBAR History of cardiac cath 2015 (stent x1) 2017 (no stents/patent grafts) 07/2019 (ALIRIO Nathaniel- no stents) History of cholecystectomy History of colonoscopy 2017 History of cystoscopy Kidney stone removal History of heart bypass surgery CABG x 3 (2008) History of lithotripsy History of shoulder surgery Right x3 History of shoulder surgery Right biceps repair Nausea and vomiting after administration of anesthetic agent Severe (in the past) Family History Daughter Family history of diabetes mellitus Mother Family history of diabetes mellitus Other Coronary heart disease Social History Smoking Status: Never smoker Second Hand Exposure: No; Do You Dip or Chew Tobacco: No; Tobacco Cessation Education Requested by Patient: No Hx Alcohol Use: Yes Alcohol type: beer Alcohol Intake Frequency Comment: To light beers daily Hx Substance Use: No Preferred Language: Malagasy Communication Ability: Effective Music Promoter Required: No Beliefs That Will Affect Care: None marital status: Current Living Situation: Spouse current occupational status: retired Other Information That Helps Us Care for You: No Feels Safe at Home: Yes Safety Concerns: Feels Safe At This Time Assistive Devices: Glasses and Walker Review of Systems Review of Systems: At least ten systems reviewed and negative except as noted in the HPI. Physical Exam Physical Exam: General Appearance: WD/WN, vitals as above, NAD, sitting up in bed, pleasant, conversing easily Head: normocephalic, atraumatic Eyes: normal inspection, PERRL ENT: external ear and nose normal, oropharynx normal Neck: normal visual inspection, trachea midline, no thyromegaly Respiratory: normal respiratory effort, lungs clear to auscultation, no wheeze, rales, rhonchi. No accessory muscle use Cardiovascular: regular rate, rhythm, no murmur, normal peripheral pulses, no BLE edema Abdomen/GI: normal bowel sounds, soft, nontender, no hepatosplenomegaly : Hernandez catheter Extremities/Musculoskeletal: no cyanosis or clubbing, extremities motor strength 5/5 Neurologic: PERRL, EOMI, CN's II-XI intact bilaterally and moves all extremities Psychiatric: A+Ox3, euthymic affect Skin: no rashes, normal color, warm/dry Results & Data Results & Data ([facility]) Vital Signs (Past 12 Hours) Vital Signs Temp Pulse Pulse Resp BP BP Pulse Ox 03/21/21 15:00 36.4 C L 79 12 103/67 97 03/21/21 14:30 78 12 99/62 L 96 03/21/21 14:00 75 14 113/66 98 03/21/21 13:45 75 16 99/62 L 96 03/21/21 13:30 77 12 98/54 L 95 03/21/21 13:15 67 18 91/62 L 93 03/21/21 13:05 36.5 C 78 16 98/62 L 94 03/21/21 12:55 78 20 111/65 94 03/21/21 12:45 80 18 95/69 L 91 03/21/21 12:35 36.1 C L 76 12 113/69 96 03/21/21 12:25 74 18 111/73 97 03/21/21 12:15 78 20 109/71 97 03/21/21 12:05 77 16 111/65 99 03/21/21 11:57 36.0 C L 76 18 112/67 97 03/21/21 07:28 36.6 C 74 20 139/84 96
[2021-03-21] MEDS: LACTATED RINGER'S 1,000 ML IV SCH ×2 (16:09→21:22)
[2021-03-21] MEDS: KETOROLAC TROMETHAMINE 15 MG/ML VIAL IV SCH ×2 (16:21→21:24)
[2021-03-21] MEDS: CLINDAMYCIN 600 MG in DEXTROSE 5% 50 ML IV SCH (18:26)
[2021-03-21] MEDS: HYDROmorphone INJ 1 MG/ML SYRINGE IV PRN ×2 (18:31→21:34)
[2021-03-21] MEDS: ATORVASTATIN 40 MG TAB PO SCH (21:23)
[2021-03-21] MEDS: DOCUSATE SODIUM/SENNA 50/8.6MG TAB PO SCH (21:23)
[2021-03-21] MEDS: SERTRALINE HCL 50 MG TABLET PO SCH (21:24)
[2021-03-22] MEDS: CLINDAMYCIN 600 MG in DEXTROSE 5% 50 ML IV SCH (02:25)
[2021-03-22] MEDS: oxyCODONE HCL IR 5 MG TAB (IMMEDIATE RELEASE) PO PRN ×4 (02:25→20:13)
[2021-03-22] MEDS: KETOROLAC TROMETHAMINE 15 MG/ML VIAL IV SCH ×2 (03:44→11:06)
[2021-03-22] MEDS: POLYETHYLENE (MIRALAX) 17 GM PACK PO SCH ×3 (06:36→17:17)
[2021-03-22 07:33] LABS: Basophils # (auto) 0.01 K/uL (0-0.2); Basophils % (auto) 0.1 %; Eosinophils # (auto) 0.01 K/uL (0-0.5); Eosinophils % (auto) 0.1 %; Hematocrit (blood only) 34.2 % (42-52); Hemoglobin 10.9 g/dL (14.0-18.0); Immature Granulocytes # (auto) 0.03 K/uL (0.00-0.02); Immature Granulocytes % (auto) 0.3 %; Lymphocytes # (auto) 1.06 K/uL (1.2-3.4); Lymphocytes % (auto) 11.2 %; Mean Corpuscular Hemoglobin 29.4 pg (25-34); Mean Corpuscular Hgb Conc 31.9 g/dL (32-36); Mean Corpuscular Volume 92.2 fL (80-100); Mean Platelet Volume 10.3 fL (7.4-10.4); Monocytes # (auto) 0.76 K/uL (0.11-0.59); Neutrophils # (auto) 7.58 K/uL (1.4-6.5); Neutrophils % (auto) 80.3 %; Platelet Count 150 K/uL (130-400); RDW Coefficient of Variation 13.9 % (11.5-14.5); RDW Standard Deviation 46.9 fL (36.4-46.3); Red Blood Count 3.71 M/uL (4.7-6.1); White Blood Count 9.45 K/uL (4.8-10.8)
[2021-03-22] MEDS: dexAMETHasone 6 MG in SYRINGE 0 ML IV SCH (07:57)
[2021-03-22] MEDS: METOPROLOL SUCC 25MG EXT REL TAB PO SCH (07:57)
[2021-03-22] MEDS: PANTOprazole 40 MG TAB PO SCH (07:58)
[2021-03-22] MEDS: ISOSORBIDE MONO EXTENDED REL 30 MG TABCR PO SCH (07:58)
[2021-03-22] MEDS: ASPIRIN 81 MG ECTAB PO SCH (07:58)
[2021-03-22 08:04] LABS: BUN Creatinine Ratio 16.2 (10-20); Calcium 8.6 mg/dl (8.5-10.1); Creatinine Clr Calc Pharmacy 97.2 ml/min; Est GFR (Non-African American) 86.3 ml/min; Potassium 3.9 mmol/L (3.5-5.1)
--- NOTE | 2021-03-22 08:25 | Hospitalist Progress Note ---
Date of Service March 22, 2021 Assessment & Plan (1) S/P spinal surgery: Plan: POD#1 s/p lumbar decomp and fusion removal of posterior segmental instrumentation L3-S1, lumbar decompression with bilateral medial facetectomies and foraminotomies L1-L2 L2-L3 and posterior spinal fusion L2-L3 by Dr. Jenkins Per ortho for pain control, wound care, anticoagulation and activities Monitor H&H (pre-op hgb 12.6, EBL 600ml), continue incentive spirometry, PT/OT when appropriate Plan to keep bullock in place for one more day until moving per his request listed above (2) Neurogenic claudication due to lumbar spinal stenosis: Plan: s/p spinal surgery above, per ortho. Denies any pain at this time. PT/OT as above. (3) CAD (coronary artery disease): Plan: chronic stable angina, s/p history of CABG, denies chest pain currently. Cont medical management with ASA 81mg, Atorvastatin 40mg, Plavix, Imdur 30mg qAM, Toprol XL 25mg QAM (4) Hyperlipidemia: Plan: Continue atorvastatin, last received Praluent monthly injection on 03/19/21 (5) Anxiety: Plan: cont sertraline per home regimen. (6) Acid reflux: Plan: cont protonix per home regimen. (7) DVT prophylaxis: Plan: SCDs s/p back surgery Full Dispo-to home when cleared [facility] Admission and Anticipated Discharge Date Admission Date: March 21, 2021 Subjective 70 yo M s/p back surgery yesterday. Reporting pain this am with any movement. Chronic chest pain that is unchanged for the past year and occurs with walking, better with rest. Denies SOB Denies nausea and tolerating PO Prefers to keep bullock in place and understands increased risk of infection daily with catheter in place. Review of Systems Review of Systems: All systems were reviewed and negative except as indicated above. Physical Exam Physical Exam: CONSTITUTIONAL: WNWD, vitals as above, generally well- appearing, NAD EYES: normal conjunctivae, no scleral icterus ENT: external ear and nose normal, MMM NECK: trachea midline RESPIRATORY: clear to auscultation bilaterally, no crackles, rales or wheezes, normal respiratory effort CARDIOVASCULAR: regular rate and rhythm, S1 and 2 heard without murmurs, gallops or rubs, no JVD, no peripheral edema, 2+ SP pulses bilaterally BACK: not examined 2/2 pain and difficulty sitting forward. +SAM drain in place with bloody drainage. GASTROINTESTINAL: soft, nontender, ND, no guarding MUSCULOSKELETAL: no gross focal deficits, limited exam 2/2 pain. SKIN: warm and dry NEUROLOGIC: No facial palsy, no dysarthria. CN 2-12 grossly intact, no sensory deficit, normal cognition, normal speech, no tremor. No gross focal deficits. PSYCHIATRIC: alert cooperative and oriented to person, place and time. Results & Data Results & Data ([facility]) Vital Signs (Past 12 Hours) Vital Signs Temp Pulse Resp BP Pulse Ox 03/22/21 07:00 36.4 C L 83 18 155/69 H 95 03/22/21 03:41 36.7 C 87 14 126/72 94 03/21/21 22:35 36.6 C 85 16 109/66 93 Laboratory Results Short CBC 03/22/21 Range/Units 07:10 WBC 9.45 (4.8-10.8) K/uL Hgb 10.9 L (14.0-18.0) g/dL Hct 34.2 L (42-52) % Plt Count 150 (130-400) K/uL BMP 03/22/21 07:10 Sodium 142 Potassium 3.9 Chloride 110 H Carbon Dioxide 25 BUN 15 Creatinine 0.91 Glucose 126 H Calcium 8.6 Medications Administered Current Inpatient Medications Acetaminophen (Acetaminophen 500 Mg Tab) 1,000 mg PO Q8H PRN PRN Reason: MILD Pain Scale 1,2,3 & Pre PT Stop: 04/20/21 14:49 Al Hydrox/Mg Hydrox/Simethicone (Aluminum/Magnesium Susp 30 Ml Udc) 30 ml PO Q6H PRN PRN Reason: Dyspepsia Stop: 04/20/21 14:49 Aspirin (Aspirin 81 Mg Ectab) 81 mg PO QAM [facility] Stop: 04/21/21 08:59 Last Admin: 03/22/21 07:58 Dose: 81 mg Documented by: Atorvastatin Calcium (Atorvastatin 40 Mg Tab) 40 mg PO QPM [facility] Stop: 04/20/21 20:59 Last Admin: 03/21/21 21:23 Dose: 40 mg Documented by: Bisacodyl (Bisacodyl 10 Mg Supp) 10 mg RI DAILY PRN PRN Reason: Constipation Stop: 04/20/21 14:49 Diphenhydramine HCl (Diphenhydramine Capsule 25 Mg Cap) 25 mg PO Q6H PRN PRN Reason: Allergic Rhinitis/Insomnia Stop: 04/20/21 14:49 Last Admin: 03/22/21 02:30 Dose: 25 mg Documented by: Famotidine (Famotidine 20 Mg Tab) 20 mg PO Q12H PRN PRN Reason: Dyspepsia Stop: 04/20/21 14:49 Hydromorphone HCl (Hydromorphone Inj 0.5 Mg/0.5 Ml Syr) 0.5 mg IV Q3H PRN PRN Reason: MODERATE Pain (Scale 4,5,6) & Pre PT Stop: 04/04/21 14:49 Hydromorphone HCl (Hydromorphone Inj 1 Mg/Ml Syringe) 1 mg IV Q3H PRN PRN Reason: SEVERE Pain (Scale 7,8,9,10) Stop: 04/04/21 14:49 Last Admin: 03/21/21 21:34 Dose: 1 mg Documented by: Hydroxyzine HCl (Hydroxyzine Hcl 25 Mg Tab) 25 mg PO Q8H PRN PRN Reason: Anxiety Stop: 04/20/21 14:49 Promethazine HCl 12.5 mg/ (Sodium Chloride) 50.5 mls @ 202 mls/hr IV Q6H PRN PRN Reason: Nausea &/or Vomiting Stop: 04/20/21 14:49 Acetaminophen (Ofirmev) 1,000 mg in 100 mls @ 400 mls/hr IV Q8H PRN PRN Reason: Pain Rating 1-3 & Pre PT Stop: 03/24/21 14:49 Lorazepam (Ativan) 0.5 mg in 1 mls @ 1 mls/min IV Q8H PRN PRN Reason: Sedation/Anxiety Stop: 04/20/21 14:49 Dexamethasone 6 mg/ Syringe 1.5 mls @ 1 mls/min IV DAILY [facility] Stop: 03/24/21 09:02 Last Admin: 03/22/21 07:57 Dose: 1 mls/min Documented by: Influenza Virus Vaccine Quadrival (Do Not Administer Flu Vaccine) 1 ea N/A PRN PRN PRN Reason: Notification Stop: 04/20/21 14:49 Isosorbide Mononitrate (Isosorbide [place] Extended Rel 30 Mg Tabcr) 30 mg PO [facility] Stop: 04/21/21 08:59 Last Admin: 03/22/21 07:58 Dose: 30 mg Documented by: Ketorolac Tromethamine (Ketorolac Tromethamine 15 Mg/Ml Vial) 15 mg IV Q6H [facility] Stop: 03/22/21 10:01 Last Admin: 03/22/21 03:44 Dose: 15 mg Documented by: Lorazepam (Lorazepam 0.5 Mg Tab) 0.5 mg PO Q8H PRN PRN Reason: Sedation/Anxiety Stop: 04/20/21 14:49 Last Admin: 03/21/21 21:52 Dose: 0.5 mg Documented by: Magnesium Hydroxide (Magnesium Hydroxide Susp 30 Ml Udc) 30 ml PO Q24H PRN PRN Reason: Constipation Stop: 04/20/21 14:49 Metoclopramide HCl (Metoclopramide Hcl Inj 5 Mg/Ml 2 Ml Vial) 10 mg IV Q6H PRN PRN Reason: Nausea &/or Vomiting Stop: 04/20/21 14:49 Metoprolol Succinate (Metoprolol Succ 25mg Ext Rel Tab) 25 mg PO [facility] Stop: 04/21/21 08:59 Last Admin: 03/22/21 07:57 Dose: 25 mg Documented by: Naloxone HCl (Naloxone Hcl 0.4 Mg/1 Ml Vial/Carp) 0.1 mg IV Q5M PRN PRN Reason: Oversedation/Resp depression Stop: 04/20/21 14:49 Nitroglycerin (Nitroglycerin Sl 0.4 Mg/Tab Tab) 0.4 mg SL UD PRN PRN Reason: Chest Pain Stop: 04/20/21 14:49 Ondansetron HCl (Ondansetron Inj 2 Mg/Ml 2 Ml Vial) 4 mg IV Q6H PRN PRN Reason: Nausea &/or Vomiting Stop: 04/20/21 14:49 Ondansetron HCl (Ondansetron 4 Mg Od Tab) 4 mg PO Q6H PRN PRN Reason: Nausea Stop: 04/20/21 14:49 Oxycodone HCl (Oxycodone Hcl Ir 5 Mg Tab (Immediate Release)) 5 - 10 mg PO Q4H PRN PRN Reason: Pain & Pre PT Stop: 04/04/21 14:49 Last Admin: 03/22/21 02:25 Dose: 10 mg Documented by: Pantoprazole Sodium (Pantoprazole 40 Mg Tab) 40 mg PO QAM [facility] Stop: 04/21/21 08:59 Last Admin: 03/22/21 07:58 Dose: 40 mg Documented by: Pneumococcal Polyvalent Vaccine (Do Not Administer Pneumococcal Vaccine) 1 ea N/A PRN PRN PRN Reason: Notification Stop: 04/20/21 14:49 Polyethylene Glycol (Polyethylene (Miralax) 17 Gm Pack) 17 gm PO Q6 [facility] Stop: 04/21/21 05:59 Last Admin: 03/22/21 06:36 Dose: 17 gm Documented by: Senna/Docusate Sodium (Docusate Sodium/Senna 50/8.6mg Tab) 2 tab PO HS [facility] Stop: 04/20/21 20:59 Last Admin: 03/21/21 21:23 Dose: 2 tab Documented by: Sertraline HCl (Sertraline Hcl 50 Mg Tablet) 50 mg PO [facility] Stop: 04/20/21 20:59 Last Admin: 03/21/21 21:24 Dose: 50 mg Documented by: Sodium Biphosphate/Sodium Phosphate (Sod Phosphate/Sod Biphosphate Enema 132 Ml Btl) 132 ml RI ONE PRN PRN Reason: Constipation Stop: 04/20/21 14:49
[2021-03-22] MEDS ORDERED: SERTRALINE HCL 50 MG TABLET PO SCH (09:00)
--- NOTE | 2021-03-22 13:23 | Orthopedic Progress Note ---
Date of Service March 22, 2021 Assessment & Plan (1) Neurogenic claudication due to lumbar spinal stenosis: Plan: This time continue physical therapy monitor his SAM operatively discharge home next few days. Admission and Anticipated Discharge Date Admission Date: March 21, 2021 Subjective Back pain controlled leg symptoms markedly improved Physical Exam Physical Exam: On exam patient is in the chair at the bedside. Is good strength testing. Appears comfortable. Results & Data ([facility]) Vital Signs (Past 12 Hours) Vital Signs Temp Pulse Resp BP Pulse Ox 03/22/21 07:00 36.4 C L 83 18 155/69 H 95 03/22/21 03:41 36.7 C 87 14 126/72 94
[2021-03-22] MEDS: ATORVASTATIN 40 MG TAB PO SCH (20:04)
[2021-03-22] MEDS: SERTRALINE HCL 50 MG TABLET PO SCH (20:05)
[2021-03-22] MEDS: DOCUSATE SODIUM/SENNA 50/8.6MG TAB PO SCH (20:09)
[2021-03-23] MEDS: POLYETHYLENE (MIRALAX) 17 GM PACK PO SCH ×5 (00:24→23:19)
[2021-03-23] MEDS: oxyCODONE HCL IR 5 MG TAB (IMMEDIATE RELEASE) PO PRN ×5 (00:24→22:34)
[2021-03-23] MEDS: HYDROmorphone INJ 1 MG/ML SYRINGE IV PRN (08:10)
[2021-03-23] MEDS: PANTOprazole 40 MG TAB PO SCH (08:12)
[2021-03-23] MEDS: dexAMETHasone 6 MG in SYRINGE 0 ML IV SCH (08:12)
[2021-03-23] MEDS: METOPROLOL SUCC 25MG EXT REL TAB PO SCH (08:12)
[2021-03-23] MEDS: ASPIRIN 81 MG ECTAB PO SCH (08:12)
[2021-03-23] MEDS: ISOSORBIDE MONO EXTENDED REL 30 MG TABCR PO SCH (08:13)
--- NOTE | 2021-03-23 11:07 | Orthopedic Progress Note ---
Date of Service March 23, 2021 Assessment & Plan (1) Neurogenic claudication due to lumbar spinal stenosis: Plan: This time continue physical therapy monitor his SAM output anticipate discharge home tomorrow. Admission and Anticipated Discharge Date Admission Date: March 21, 2021 Subjective Back pain controlled leg pain markedly improved Physical Exam Physical Exam: Patient is in the chair at bedside. Is good strength testing. Appears comfortable. Results & Data ([facility]) Vital Signs (Past 12 Hours) Vital Signs Temp Pulse Resp BP BP Pulse Ox 03/23/21 06:55 36.4 C L 75 16 129/84 95 03/22/21 23:19 36.7 C 71 16 157/74 H 95
--- NOTE | 2021-03-23 20:08 | Hospitalist Progress Note ---
Date of Service March 23, 2021 Assessment & Plan (1) S/P spinal surgery: Plan: POD#2 s/p lumbar decomp and fusion removal of posterior segmental instrumentation L3-S1, lumbar decompression with bilateral medial facetectomies and foraminotomies L1-L2 L2-L3 and posterior spinal fusion L2-L3 by Dr. Jenkins Per ortho for pain control, wound care, anticoagulation and activities Monitor H&H (pre-op hgb 12.6, EBL 600ml), continue incentive spirometry, PT/OT when appropriate Plan to keep bullock in place for one more day until moving per his request listed above (2) Neurogenic claudication due to lumbar spinal stenosis: Plan: s/p spinal surgery above, per ortho. Denies any pain at this time. PT/OT as above. (3) CAD (coronary artery disease): Plan: chronic stable angina, s/p history of CABG, denies chest pain currently. Cont medical management with ASA 81mg, Atorvastatin 40mg, Plavix, Imdur 30mg qAM, Toprol XL 25mg QAM (4) Hyperlipidemia: Plan: Continue atorvastatin, last received Praluent monthly injection on 03/19/21 (5) Anxiety: Plan: cont sertraline per home regimen. (6) Acid reflux: Plan: cont protonix per home regimen. (7) DVT prophylaxis: Plan: SCDs s/p back surgery Full Dispo-to home when cleared [facility] Admission and Anticipated Discharge Date Admission Date: March 21, 2021 Subjective 70 yo M s/p back surgery Pain continues to improve Denies SOB/CP Denies nausea and tolerating PO Bullock out and he is moving better. at bedside Review of Systems Review of Systems: All systems were reviewed and negative except as indicated above. Physical Exam Physical Exam: CONSTITUTIONAL: WNWD, vitals as above, generally well- appearing, NAD EYES: normal conjunctivae, no scleral icterus ENT: external ear and nose normal, MMM NECK: trachea midline RESPIRATORY: clear to auscultation bilaterally, no crackles, rales or wheezes, normal respiratory effort CARDIOVASCULAR: regular rate and rhythm, S1 and 2 heard without murmurs, gallops or rubs, no JVD, no peripheral edema, extremities warm and well perfused BACK: not examined 2/2 pain and difficulty sitting forward. +SAM drain in place with bloody drainage. GASTROINTESTINAL: soft, nontender, ND, no guarding MUSCULOSKELETAL: no gross focal deficits, limited exam 2/2 pain. SKIN: warm and dry NEUROLOGIC: No facial palsy, no dysarthria. CN 2-12 grossly intact, no sensory deficit, normal cognition, normal speech, no tremor. No gross focal deficits. PSYCHIATRIC: alert cooperative and oriented to person, place and time. Results & Data Results & Data ([facility]) Vital Signs (Past 12 Hours) Vital Signs Temp Pulse Resp BP Pulse Ox 03/23/21 15:30 36.6 C 84 16 119/74 91 Medications Administered Current Inpatient Medications Acetaminophen (Acetaminophen 500 Mg Tab) 1,000 mg PO Q8H PRN PRN Reason: MILD Pain Scale 1,2,3 & Pre PT Stop: 04/20/21 14:49 Al Hydrox/Mg Hydrox/Simethicone (Aluminum/Magnesium Susp 30 Ml Udc) 30 ml PO Q6H PRN PRN Reason: Dyspepsia Stop: 04/20/21 14:49 Aspirin (Aspirin 81 Mg Ectab) 81 mg PO QAM [facility] Stop: 04/21/21 08:59 Last Admin: 03/23/21 08:12 Dose: 81 mg Documented by: Atorvastatin Calcium (Atorvastatin 40 Mg Tab) 40 mg PO QPM [facility] Stop: 04/20/21 20:59 Last Admin: 03/22/21 20:04 Dose: 40 mg Documented by: Bisacodyl (Bisacodyl 10 Mg Supp) 10 mg [place] DAILY PRN PRN Reason: Constipation Stop: 04/20/21 14:49 Diphenhydramine HCl (Diphenhydramine Capsule 25 Mg Cap) 25 mg PO Q6H PRN PRN Reason: Allergic Rhinitis/Insomnia Stop: 04/20/21 14:49 Last Admin: 03/22/21 02:30 Dose: 25 mg Documented by: Famotidine (Famotidine 20 Mg Tab) 20 mg PO Q12H PRN PRN Reason: Dyspepsia Stop: 04/20/21 14:49 Hydromorphone HCl (Hydromorphone Inj 0.5 Mg/0.5 Ml Syr) 0.5 mg IV Q3H PRN PRN Reason: MODERATE Pain (Scale 4,5,6) & Pre PT Stop: 04/04/21 14:49 Last Admin: 03/23/21 14:18 Dose: 0.5 mg Documented by: Hydromorphone HCl (Hydromorphone Inj 1 Mg/Ml Syringe) 1 mg IV Q3H PRN PRN Reason: SEVERE Pain (Scale 7,8,9,10) Stop: 04/04/21 14:49 Last Admin: 03/23/21 08:10 Dose: 1 mg Documented by: Hydroxyzine HCl (Hydroxyzine Hcl 25 Mg Tab) 25 mg PO Q8H PRN PRN Reason: Anxiety Stop: 04/20/21 14:49 Last Admin: 03/22/21 22:04 Dose: 25 mg Documented by: Promethazine HCl 12.5 mg/ (Sodium Chloride) 50.5 mls @ 202 mls/hr IV Q6H PRN PRN Reason: Nausea &/or Vomiting Stop: 04/20/21 14:49 Acetaminophen (Ofirmev) 1,000 mg in 100 mls @ 400 mls/hr IV Q8H PRN PRN Reason: Pain Rating 1-3 & Pre PT Stop: 03/24/21 14:49 Lorazepam (Ativan) 0.5 mg in 1 mls @ 1 mls/min IV Q8H PRN PRN Reason: Sedation/Anxiety Stop: 04/20/21 14:49 Dexamethasone 6 mg/ Syringe 1.5 mls @ 1 mls/min IV DAILY [facility] Stop: 03/24/21 09:02 Last Admin: 03/23/21 08:12 Dose: 1 mls/min Documented by: Influenza Virus Vaccine Quadrival (Do Not Administer Flu Vaccine) 1 ea N/A PRN PRN PRN Reason: Notification Stop: 04/20/21 14:49 Isosorbide Mononitrate (Isosorbide [place] Extended Rel 30 Mg Tabcr) 30 mg PO QAM [facility] Stop: 04/21/21 08:59 Last Admin: 03/23/21 08:13 Dose: 30 mg Documented by: Lorazepam (Lorazepam 0.5 Mg Tab) 0.5 mg PO Q8H PRN PRN Reason: Sedation/Anxiety Stop: 04/20/21 14:49 Last Admin: 03/21/21 21:52 Dose: 0.5 mg Documented by: Magnesium Hydroxide (Magnesium Hydroxide Susp 30 Ml Udc) 30 ml PO Q24H PRN PRN Reason: Constipation Stop: 04/20/21 14:49 Metoclopramide HCl (Metoclopramide Hcl Inj 5 Mg/Ml 2 Ml Vial) 10 mg IV Q6H PRN PRN Reason: Nausea &/or Vomiting Stop: 04/20/21 14:49 Metoprolol Succinate (Metoprolol Succ 25mg Ext Rel Tab) 25 mg PO QAM [facility] Stop: 04/21/21 08:59 Last Admin: 03/23/21 08:12 Dose: 25 mg Documented by: Naloxone HCl (Naloxone Hcl 0.4 Mg/1 Ml Vial/Carp) 0.1 mg IV Q5M PRN PRN Reason: Oversedation/Resp depression Stop: 04/20/21 14:49 Nitroglycerin (Nitroglycerin Sl 0.4 Mg/Tab Tab) 0.4 mg SL UD PRN PRN Reason: Chest Pain Stop: 04/20/21 14:49 Ondansetron HCl (Ondansetron Inj 2 Mg/Ml 2 Ml Vial) 4 mg IV Q6H PRN PRN Reason: Nausea &/or Vomiting Stop: 04/20/21 14:49 Ondansetron HCl (Ondansetron 4 Mg Od Tab) 4 mg PO Q6H PRN PRN Reason: Nausea Stop: 04/20/21 14:49 Oxycodone HCl (Oxycodone Hcl Ir 5 Mg Tab (Immediate Release)) 5 - 10 mg PO Q4H PRN PRN Reason: Pain & Pre PT Stop: 04/04/21 14:49 Last Admin: 03/23/21 17:35 Dose: 10 mg Documented by: Pantoprazole Sodium (Pantoprazole 40 Mg Tab) 40 mg PO QAM [facility] Stop: 04/21/21 08:59 Last Admin: 03/23/21 08:12 Dose: 40 mg Documented by: Pneumococcal Polyvalent Vaccine (Do Not Administer Pneumococcal Vaccine) 1 ea N/A PRN PRN PRN Reason: Notification Stop: 04/20/21 14:49 Polyethylene Glycol (Polyethylene (Miralax) 17 Gm Pack) 17 gm PO Q6 [facility] Stop: 04/21/21 05:59 Last Admin: 03/23/21 17:36 Dose: 17 gm Documented by: Senna/Docusate Sodium (Docusate Sodium/Senna 50/8.6mg Tab) 2 tab PO HS [facility] Stop: 04/20/21 20:59 Last Admin: 03/22/21 20:09 Dose: 2 tab Documented by: Sertraline HCl (Sertraline Hcl 50 Mg Tablet) 50 mg PO [facility] Stop: 04/20/21 20:59 Last Admin: 03/22/21 20:05 Dose: 50 mg Documented by: Sodium Biphosphate/Sodium Phosphate (Sod Phosphate/Sod Biphosphate Enema 132 Ml Btl) 132 ml MO ONE PRN PRN Reason: Constipation Stop: 04/20/21 14:49
[2021-03-23] MEDS: SERTRALINE HCL 50 MG TABLET PO SCH (20:16)
[2021-03-23] MEDS: ATORVASTATIN 40 MG TAB PO SCH (20:17)
[2021-03-23] MEDS: DOCUSATE SODIUM/SENNA 50/8.6MG TAB PO SCH (20:18)
[2021-03-24] MEDS: POLYETHYLENE (MIRALAX) 17 GM PACK PO SCH (05:44)
[2021-03-24] MEDS: oxyCODONE HCL IR 5 MG TAB (IMMEDIATE RELEASE) PO PRN ×2 (05:44→13:36)
[2021-03-24 08:29] LABS: Hemoglobin 11.3 g/dL (14.0-18.0); Mean Corpuscular Hemoglobin 30.2 pg (25-34); Mean Corpuscular Hgb Conc 32.3 g/dL (32-36); Mean Corpuscular Volume 93.6 fL (80-100); Mean Platelet Volume 10.3 fL (7.4-10.4); Platelet Count 170 K/uL (130-400); RDW Coefficient of Variation 14.3 % (11.5-14.5); Red Blood Count 3.74 M/uL (4.7-6.1); White Blood Count 8.31 K/uL (4.8-10.8)
[2021-03-24] MEDS: PANTOprazole 40 MG TAB PO SCH (08:43)
[2021-03-24] MEDS: dexAMETHasone 6 MG in SYRINGE 0 ML IV SCH (08:43)
[2021-03-24] MEDS: METOPROLOL SUCC 25MG EXT REL TAB PO SCH (08:43)
[2021-03-24] MEDS: ASPIRIN 81 MG ECTAB PO SCH (08:43)
[2021-03-24] MEDS: ISOSORBIDE MONO EXTENDED REL 30 MG TABCR PO SCH (08:43)
[2021-03-24 08:59] LABS: BUN Creatinine Ratio 13.8 (10-20); Calcium 8.5 mg/dl (8.5-10.1); Creatinine Clr Calc Pharmacy 107.9 ml/min; Est GFR (African American) 105.3 ml/min; Est GFR (Non-African American) 90.9 ml/min; Potassium 3.9 mmol/L (3.5-5.1)
--- NOTE | 2021-03-24 08:59 | Hospitalist Progress Note ---
Date of Service March 24, 2021 Assessment & Plan (1) S/P spinal surgery: Plan: POD#3 s/p lumbar decomp and fusion removal of posterior segmental instrumentation L3-S1, lumbar decompression with bilateral medial facetectomies and foraminotomies L1-L2 L2-L3 and posterior spinal fusion L2-L3 by Dr. Jenkins Per ortho for pain control, wound care, anticoagulation and activities Monitor H&H (pre-op hgb 12.6, EBL 600ml), continue incentive spirometry, PT/OT when appropriate Hernandez out yesterday and he is urinating without issue (2) Neurogenic claudication due to lumbar spinal stenosis: Plan: s/p spinal surgery above, per ortho. Denies any pain at this time. PT/OT as above. (3) CAD (coronary artery disease): Plan: chronic stable angina, s/p history of CABG, denies chest pain currently. Cont medical management with ASA 81mg, Atorvastatin 40mg, Plavix, Imdur 30mg qAM, Toprol XL 25mg QAM (4) Hyperlipidemia: Plan: Continue atorvastatin, last received Praluent monthly injection on 03/19/21 (5) Anxiety: Plan: cont sertraline per home regimen. (6) Acid reflux: Plan: cont protonix per home regimen. (7) DVT prophylaxis: Plan: SCDs s/p back surgery Full Dispo-to home when cleared by Ortho DO Yovani Reddy Hospitalist Admission and Anticipated Discharge Date Admission Date: March 21, 2021 Subjective 70 yo M s/p back surgery Pain continues to improve, but he definitely has some present this morning Says it is OK No BM yet but feels it coming on. Denies SOB/CP Denies nausea and tolerating PO Review of Systems Review of Systems: All systems were reviewed and negative except as indicated above. Physical Exam Physical Exam: CONSTITUTIONAL: WNWD, vitals as above, generally well- appearing, NAD EYES: normal conjunctivae, no scleral icterus ENT: external ear and nose normal, MMM NECK: trachea midline RESPIRATORY: clear to auscultation bilaterally, no crackles, rales or wheezes, normal respiratory effort CARDIOVASCULAR: regular rate and rhythm, S1 and 2 heard without murmurs, gallops or rubs, no JVD, no peripheral edema, extremities warm and well perfused BACK: not examined 2/2 pain and difficulty sitting forward. +SAM drain in place with bloody drainage. GASTROINTESTINAL: soft, nontender, ND, no guarding MUSCULOSKELETAL: no gross focal deficits, limited exam 2/2 pain. SKIN: warm and dry NEUROLOGIC: No facial palsy, no dysarthria. CN 2-12 grossly intact, no sensory deficit, normal cognition, normal speech, no tremor. No gross focal deficits. PSYCHIATRIC: alert cooperative and oriented to person, place and time. Results & Data Results & Data ([facility]) Vital Signs (Past 12 Hours) Vital Signs Temp Pulse Resp BP BP Pulse Ox 03/24/21 07:00 36.5 C 69 16 129/79 96 03/23/21 22:48 36.7 C 82 16 129/66 94 Laboratory Results Short CBC 03/24/21 Range/Units 07:57 WBC 8.31 (4.8-10.8) K/uL Hgb 11.3 L (14.0-18.0) g/dL Hct 35.0 L (42-52) % Plt Count 170 (130-400) K/uL Medications Administered Current Inpatient Medications Acetaminophen (Acetaminophen 500 Mg Tab) 1,000 mg PO Q8H PRN PRN Reason: MILD Pain Scale 1,2,3 & Pre PT Stop: 04/20/21 14:49 Al Hydrox/Mg Hydrox/Simethicone (Aluminum/Magnesium Susp 30 Ml Udc) 30 ml PO Q6H PRN PRN Reason: Dyspepsia Stop: 04/20/21 14:49 Aspirin (Aspirin 81 Mg Ectab) 81 mg PO QAM [facility] Stop: 04/21/21 08:59 Last Admin: 03/24/21 08:43 Dose: 81 mg Documented by: Atorvastatin Calcium (Atorvastatin 40 Mg Tab) 40 mg PO QPM [facility] Stop: 04/20/21 20:59 Last Admin: 03/23/21 20:17 Dose: 40 mg Documented by: Bisacodyl (Bisacodyl 10 Mg Supp) 10 mg MT DAILY PRN PRN Reason: Constipation Stop: 04/20/21 14:49 Diphenhydramine HCl (Diphenhydramine Capsule 25 Mg Cap) 25 mg PO Q6H PRN PRN Reason: Allergic Rhinitis/Insomnia Stop: 04/20/21 14:49 Last Admin: 03/22/21 02:30 Dose: 25 mg Documented by: Famotidine (Famotidine 20 Mg Tab) 20 mg PO Q12H PRN PRN Reason: Dyspepsia Stop: 04/20/21 14:49 Hydromorphone HCl (Hydromorphone Inj 0.5 Mg/0.5 Ml Syr) 0.5 mg IV Q3H PRN PRN Reason: MODERATE Pain (Scale 4,5,6) & Pre PT Stop: 04/04/21 14:49 Last Admin: 03/23/21 14:18 Dose: 0.5 mg Documented by: Hydromorphone HCl (Hydromorphone Inj 1 Mg/Ml Syringe) 1 mg IV Q3H PRN PRN Reason: SEVERE Pain (Scale 7,8,9,10) Stop: 04/04/21 14:49 Last Admin: 03/23/21 08:10 Dose: 1 mg Documented by: Hydroxyzine HCl (Hydroxyzine Hcl 25 Mg Tab) 25 mg PO Q8H PRN PRN Reason: Anxiety Stop: 04/20/21 14:49 Last Admin: 03/22/21 22:04 Dose: 25 mg Documented by: Promethazine HCl 12.5 mg/ (Sodium Chloride) 50.5 mls @ 202 mls/hr IV Q6H PRN PRN Reason: Nausea &/or Vomiting Stop: 04/20/21 14:49 Acetaminophen (Ofirmev) 1,000 mg in 100 mls @ 400 mls/hr IV Q8H PRN PRN Reason: Pain Rating 1-3 & Pre PT Stop: 03/24/21 14:49 Lorazepam (Ativan) 0.5 mg in 1 mls @ 1 mls/min IV Q8H PRN PRN Reason: Sedation/Anxiety Stop: 04/20/21 14:49 Dexamethasone 6 mg/ Syringe 1.5 mls @ 1 mls/min IV DAILY [facility] Stop: 03/24/21 09:02 Last Admin: 03/24/21 08:43 Dose: 1 mls/min Documented by: Influenza Virus Vaccine Quadrival (Do Not Administer Flu Vaccine) 1 ea N/A PRN PRN PRN Reason: Notification Stop: 04/20/21 14:49 Isosorbide Mononitrate (Isosorbide [place] Extended Rel 30 Mg Tabcr) 30 mg PO QAM [facility] Stop: 04/21/21 08:59 Last Admin: 03/24/21 08:43 Dose: 30 mg Documented by: Lorazepam (Lorazepam 0.5 Mg Tab) 0.5 mg PO Q8H PRN PRN Reason: Sedation/Anxiety Stop: 04/20/21 14:49 Last Admin: 03/21/21 21:52 Dose: 0.5 mg Documented by: Magnesium Hydroxide (Magnesium Hydroxide Susp 30 Ml Udc) 30 ml PO Q24H PRN PRN Reason: Constipation Stop: 04/20/21 14:49 Metoclopramide HCl (Metoclopramide Hcl Inj 5 Mg/Ml 2 Ml Vial) 10 mg IV Q6H PRN PRN Reason: Nausea &/or Vomiting Stop: 04/20/21 14:49 Metoprolol Succinate (Metoprolol Succ 25mg Ext Rel Tab) 25 mg PO [facility] Stop: 04/21/21 08:59 Last Admin: 03/24/21 08:43 Dose: 25 mg Documented by: Naloxone HCl (Naloxone Hcl 0.4 Mg/1 Ml Vial/Carp) 0.1 mg IV Q5M PRN PRN Reason: Oversedation/Resp depression Stop: 04/20/21 14:49 Nitroglycerin (Nitroglycerin Sl 0.4 Mg/Tab Tab) 0.4 mg SL UD PRN PRN Reason: Chest Pain Stop: 04/20/21 14:49 Ondansetron HCl (Ondansetron Inj 2 Mg/Ml 2 Ml Vial) 4 mg IV Q6H PRN PRN Reason: Nausea &/or Vomiting Stop: 04/20/21 14:49 Ondansetron HCl (Ondansetron 4 Mg Od Tab) 4 mg PO Q6H PRN PRN Reason: Nausea Stop: 04/20/21 14:49 Oxycodone HCl (Oxycodone Hcl Ir 5 Mg Tab (Immediate Release)) 5 - 10 mg PO Q4H PRN PRN Reason: Pain & Pre PT Stop: 04/04/21 14:49 Last Admin: 03/24/21 05:44 Dose: 10 mg Documented by: Pantoprazole Sodium (Pantoprazole 40 Mg Tab) 40 mg PO [facility] Stop: 04/21/21 08:59 Last Admin: 03/24/21 08:43 Dose: 40 mg Documented by: Pneumococcal Polyvalent Vaccine (Do Not Administer Pneumococcal Vaccine) 1 ea N/A PRN PRN PRN Reason: Notification Stop: 04/20/21 14:49 Polyethylene Glycol (Polyethylene (Miralax) 17 Gm Pack) 17 gm PO Q6 [facility] Stop: 04/21/21 05:59 Last Admin: 03/24/21 05:44 Dose: 17 gm Documented by: Senna/Docusate Sodium (Docusate Sodium/Senna 50/8.6mg Tab) 2 tab PO HS [facility] Stop: 04/20/21 20:59 Last Admin: 03/23/21 20:18 Dose: 2 tab Documented by: Sertraline HCl (Sertraline Hcl 50 Mg Tablet) 50 mg PO HS [facility] Stop: 04/20/21 20:59 Last Admin: 03/23/21 20:16 Dose: 50 mg Documented by: Sodium Biphosphate/Sodium Phosphate (Sod Phosphate/Sod Biphosphate Enema 132 Ml Btl) 132 ml MT ONE PRN PRN Reason: Constipation Stop: 04/20/21 14:49
--- NOTE | 2021-03-24 10:43 | Discharge Summary ---
Date of Service March 24, 2021 Admission HPI Per Admitting Provider This is a 62-year-old male well-known to me the presents with chronic persistent back and leg pain. Failing course of nonoperative care is here for surgical invention. Discharge Data Consultations 03/21/21 14:50 Consult Hospitalist Routine Procedures Performed Operation Date: 03/21/21 08:45 Actual Procedures p L2-L3 Decompression and Fusion, Application of Bone Morphogenetic Protein and IFactor Bone Graft, Interbody Fusion L2-3, Spinal Cord Monitoring(Not Applicable) - Tamir Jenkins DO s L3-S1 Hardware Removal(Not Applicable) - Tamir Jenkins DO Hospital Course (1) Neurogenic claudication due to lumbar spinal stenosis: Patient is a pleasant 62-year-old male who had history physical examination radiographic findings consistent with the above-mentioned diagnosis. For this reason he was brought to the operating room on 03/21/2021 and undergone the above-mentioned procedure. This performed Dr. Jenkins under general anesthetic. Left the operating room with a SAM drain Hernandez in place and was transferred to PACU in stable condition. He was taken to the orthopedic floor. He was seen by physical therapy postop day #1. Throughout his hospital course his pain is well controlled. On postop day three he is deemed safe for home discharge. His discharge instructions were reviewed in detail. Is to follow-up with our office approximately 2 weeks out from surgery or sooner if he develops any increased pain, fever, chills, or increased drainage. Supervising Physician Co-Signing Physician Notes Pt seen and examined by me, care coordinated w/ Rod Mays PA-C, pls refer to her note above for further detail. Pt is a 70yo M with CAD, hx of CABG x2, hx of ischemic cardiomyopathy, hyperlipidemia, GERD, who is POD #0 s/p lumbar decompression and fusion by Dr. Jenkins. Pt is currently sitting up in bed, eating dinner, in NAD. He is alert oriented and answering questions appropriately. Reports back pain but says his legs feel better already. There is no LE sensory loss noted and pt is moving LEs. Heart sounds regular. Lung sounds clear to auscultation. Abdomen soft, nontender, nondistended. Skin is warm and dry. Blood loss 600cc per operative report. Will closely monitor hemodynamic status and H&H. Off Plavix prior to surgery, restart by the surgeon when appropriate. Evelin Sims MD
== END 2021-03-24 13:56 | disposition home or self-care (01) | DRG 455 ==
LOC: ASU 07:03 → EDINP 11:46 → 3N 15:26